=== PATIENT | male | born 1955 | race Caucasian/White ===

== ENCOUNTER 2017-03-20 15:41 | Inpatient (IN) | payer BC ==
[2017-03-20 16:42] LABS: Basophils % (A) 0 %; CH 31.3; CHCM 34.5; Eosinophils # (A) 0.1 k/uL (0-0.7); Eosinophils % (A) 1 %; HCT 45.3 % (39.0-53.0); HDW 2.31; HGB 15.5 gm/dL (13.0-17.5); Luc # (Auto) 0.17; Luc % (Auto) 2; Lymphocytes # (A) 2.1 k/uL (1.0-4.8); Lymphocytes % (A) 20 %; MCH 31.2 pg (25.0-35.0); MCHC 34.2 g/dL (31.0-37.0); MCV 91.3 fL (80.0-100.0); Mean Platelet Volume 6.3; Monocytes # (A) 0.6 k/uL (0-1.0); Monocytes % (A) 5 %; Neutrophils # (A) 7.7 k/uL (1.3-7.7); Neutrophils % (A) 72 %; RBC 4.97 m/uL (4.30-5.90); RDW 15.3 % (11.5-15.5); WBC 10.8 k/uL (3.8-10.6); WBC (Perox) 10.59
--- NOTE | 2017-03-20 16:45 | CT ---
EXAMINATION TYPE: CT brain wo con DATE OF EXAM: 03/20/2017 COMPARISON: NONE HISTORY: 61-year-old male Left sided weakness. TECHNIQUE: Examination was done in axial plane without intravenous contrast. Coronal and sagittal r econstructions performed. CT DLP: 1219.00 mGycm Automated exposure control for dose reduction was used. FINDINGS: There is no evidence of acute intracranial hemorrhage, acute ischemic changes, mass, mass-effect, or extra-axial fluid collection. There is no effacement of cerebral sulci or basal subarachnoid cister ns. There is no midline shift. Barrera-white matter distinction is preserved. Mild to moderate generalized supratentorial volume loss with secondary mild prominence to the ventric ular system. Moderate patchy and confluent white matter hypodensities in both cerebral hemispheres. Orbits and globes are intact. Rightward nasal septal deviation. Paranasal sinuses and mastoid air eliza ls well pneumatized. IMPRESSION: No acute intracranial abnormality seen. [id number] atrophy and changes of chronic small vessel ischemic disease.
--- NOTE | 2017-03-20 16:46 | XR ---
EXAMINATION TYPE: XR chest 2V DATE OF EXAM: 03/20/2017 COMPARISON: None HISTORY: 61-year-old male with weakness TECHNIQUE: Frontal and lateral views FINDINGS: Heart is normal size. Mild elongation/ectasia of the thoracic aorta. Mild interstitial prominence as a chronic appearance. No consolidation or pleural effusion. Minimal anterior wedging of a midthoracic vertebral body suggestive of an age indeterminate compression injury. IMPRESSION: Chronic-appearing changes. No acute process seen. Mild elongation/ectasia of the thoracic aorta. Mini mal anterior wedging of a mid thoracic vertebral bodies suggests an age indeterminate compression inj ury.
[2017-03-20 16:50] LABS: Partial Thromboplastin Time 25.4 sec (22.0-30.0); Prothrombin Time 10.3 sec (9.0-12.0)
[2017-03-20 16:59] LABS: ALT 54 U/L (21-72); AST 64 U/L (17-59); Alkaline Phosphatase 100 U/L (38-126); Anion Gap 14 mmol/L; Blood Urea Nitrogen 26 mg/dL (9-20); Calcium 10.3 mg/dL (8.4-10.2); Carbon Dioxide 22 mmol/L (22-30); Chloride 99 mmol/L (98-107); Glucose 116 mg/dL (74-99); Non-African American GFR(MDRD) >60 (>60 ml/min/1.73 sqM); Potassium 3.8 mmol/L (3.5-5.1); Sodium 135 mmol/L (137-145); Total Bilirubin 0.8 mg/dL (0.2-1.3); Total Protein 8.1 g/dL (6.3-8.2)
--- NOTE | 2017-03-20 17:05 | ED ---
General Adult HPI - General Chief complaint: Weakness Stated complaint: Weakness Time Seen by Provider: 03/20/17 16:29 Source: patient, EMS, RN notes reviewed Mode of arrival: EMS Limitations: physical limitation - History of Present Illness Initial comments: Patient is a pleasant 61-year-old male presenting to the emergency department complaining of left-sided weakness. Patient woke up Saturday morning with some problems. Patient fell down secondary to left-sided weakness and has been unable to walk since that time. Patient was able to scoot himself around a little bit with difficulty. Patient states his left arm weakness and left leg weakness has slightly improved. No right-sided weakness. No speech problems. No confusion. No injury. Patient has mostly been lying on the ground for the last 2 days. - Related Data Home Medications Medication Instructions Recorded Confirmed Acetaminophen [Tylenol Extra 500 mg PO DAILY PRN 03/20/17 03/20/17 Strength] Fluticasone Nasal [place] [Flonase 1 spray EA NOSTRIL DAILY 03/20/17 03/20/17 Nasal [place]] Loratadine [Claritin] 10 mg PO DAILY 03/20/17 03/20/17 Multivitamins, Thera [Multivitamin 1 tab PO DAILY 03/20/17 03/20/17 (formulary)] Allergies Allergy/AdvReac Type Severity Reaction Status Date / Time No Known Allergies Allergy Verified 03/20/17 16:17 Review of Systems ROS Statement: Those systems with pertinent positive or pertinent negative responses have been documented in the HPI. ROS Other: All systems not noted in ROS Statement are negative. Constitutional: Denies: fever Eyes: Denies: eye pain ENT: Denies: ear pain Respiratory: Denies: cough Cardiovascular: Denies: chest pain Endocrine: Denies: fatigue Gastrointestinal: Denies: abdominal pain Genitourinary: Denies: dysuria Musculoskeletal: Denies: back pain Skin: Denies: rash Neurological: Reports: weakness. Denies: headache, paresthesias, confusion Past Medical History Past Medical History: Hypertension, Seizure Disorder History of Any Multi-Drug Resistant Organisms: None Reported Past Surgical History: Hernia Repair, Tonsillectomy Past Psychological History: Anxiety Smoking Status: Current every day smoker Past Alcohol Use History: None Reported Past Drug Use History: Marijuana General Exam Limitations: physical limitation General appearance: alert, in no apparent distress Head exam: Present: atraumatic Eye exam: Present: normal appearance, PERRL, EOMI ENT exam: Present: normal oropharynx Neck exam: Present: normal inspection Respiratory exam: Present: normal lung sounds bilaterally Cardiovascular Exam: Present: regular rate, normal rhythm GI/Abdominal exam: Present: soft. Absent: tenderness Extremities exam: Present: normal inspection Neurological exam: Present: alert, oriented X3, CN II-XII intact (Except left facial droop and left shoulder weakness), motor sensory deficit Expanded Neurological exam: Present: other (Left Facial droop, not involving the forehead.) Patient oriented to: Present: person, place, time Speech: Present: fluid speech Cranial nerves: EOM's Intact: Normal, Facial Sensation: Normal Sensory exam: Upper Extremity Light Touch: Normal, Lower Extremity Light Touch: Normal Motor strength exam: RUE: 5, LUE: 2/1, RLE: 5, LLE: 2/ Psychiatric exam: Present: normal affect, normal mood Skin exam: Present: normal color Course Vital Signs 03/20/17 15:46 Temperature 99.8 F H Pulse Rate 104 H Respiratory 17 Rate Blood Pressure 221/135 - Reevaluation(s) Reevaluation #1: 03/20/17 17:01 Patient is not a TPA candidate secondary to onset of symptoms 2 days ago. EKG Findings - EKG Comments: EKG Findings:: Sinus tachycardia 102. VT 136. QRS 88. QT 364. QTC 474. Normal axis. Normal QRS. No acute ST change. Medical Decision Making - Medical Decision Making Patient was updated on results and plan. Case was discussed in detail with Dr. Bennett, who will admit for Dr. Lund. Neurology will be consulted. - Lab Data Result diagrams: 03/20/17 16:01 03/20/17 16:01 Lab Results 03/20/17 03/20/17 03/20/17 Range/Units 16:01 16:01 16:01 WBC 10.8 H (3.8-10.6) k/uL RBC 4.97 (4.30-5.90) m/uL Hgb 15.5 (13.0-17.5) gm/dL Hct 45.3 (39.0-53.0) % MCV 91.3 (80.0-100.0) fL MCH 31.2 (25.0-35.0) pg MCHC 34.2 (31.0-37.0) g/dL RDW 15.3 (11.5-15.5) % Plt Count 377 (150-450) k/uL Neutrophils % 72 % Lymphocytes % 20 % Monocytes % 5 % Eosinophils % 1 % Basophils % 0 % Neutrophils # 7.7 (1.3-7.7) k/uL Lymphocytes # 2.1 (1.0-4.8) k/uL Monocytes # 0.6 (0-1.0) k/uL Eosinophils # 0.1 (0-0.7) k/uL Basophils # 0.0 (0-0.2) k/uL PT 10.3 (9.0-12.0) sec INR 1.0 (<1.2) APTT 25.4 (22.0-30.0) sec Sodium 135 L (137-145) mmol/L Potassium 3.8 (3.5-5.1) mmol/L Chloride 99 (98-107) mmol/L Carbon Dioxide 22 (22-30) mmol/L Anion Gap 14 mmol/L BUN 26 H (9-20) mg/dL Creatinine 1.21 (0.66-1.25) mg/dL Est GFR (MDRD) Af Amer >60 (>60 ml/min/1.73 sqM) Est GFR (MDRD) Non-Af >60 (>60 ml/min/1.73 sqM) Glucose 116 H (74-99) mg/dL Calcium 10.3 H (8.4-10.2) mg/dL Total Bilirubin 0.8 (0.2-1.3) mg/dL AST 64 H (17-59) U/L ALT 54 (21-72) U/L Alkaline Phosphatase 100 (38-126) U/L Total Protein 8.1 (6.3-8.2) g/dL Albumin 4.9 (3.5-5.0) g/dL - Radiology Data Radiology results: image reviewed (Computed tomography scan of the brain shows no acute intracranial abnormality. Two-view chest x-ray shows chronic changes. No acute process. Ectasia of the thoracic aorta.) Disposition Clinical Impression: CVA (cerebral vascular accident) Disposition: ADMITTED IP TO THIS [facility] Condition: Serious Referrals: None,Stated [Primary Care Provider] - 1-2 days Decision Time: 17:20
[2017-03-20 17:20] LABS: Creatine Kinase MB 4.2 ng/mL (0.0-2.4); Troponin I 0.043 ng/mL (0.000-0.034)
[2017-03-20] MEDS ORDERED: ASPIRIN 325 MG TAB PO STA (17:20)
[2017-03-20] MEDS ORDERED: LABETALOL 5 MG/ML VIAL MDV IVP STA (17:27)
[2017-03-20] MEDS: SODIUM CHLORIDE 0.9% 1,000 ML IV SCH (17:37)
[2017-03-20 18:36] LABS: Glucose,Whole Blood 124 mg/dL (75-99)
[2017-03-20] MEDS ORDERED: VALPROATE SODIUM 1,000 MG in SODIUM CHLORIDE 0.9% 50 ML IVPB STA (18:48)
[2017-03-20 19:07] VITALS: BMI 20.1
[2017-03-20] MEDS: DIVALPROEX 500 MG TABLET.DR PO SCH (20:01)
[2017-03-20] MEDS: LABETALOL 5 MG/ML VIAL MDV IVP PRN ×2 (20:01→20:20)
[2017-03-20 20:22] LABS: Appearance,Urine Clear (Clear); Bacteria,Urine Rare /hpf; Bilirubin,Urine Negative (Negative); Glucose,Urine (UA) Negative (Negative); Ketones,Urine 1+ (Negative); Leukocyte Esterase,Urine Negative (Negative); Mucus,Urine Few /hpf; Nitrite,Urine Negative (Negative); Particle Count 5642; Protein,Urine 3+ (Negative); RBC,Urine 14 /hpf (0-5); Specific Gravity,Urine 1.019 (1.001-1.035); Squamous Epithelial Cell,Urine <1 /hpf (0-4); UA Billing (MACRO vs. MICRO) MICRO; WBC,Urine 3 /hpf (0-5)
--- NOTE | 2017-03-20 21:49 | CONS ---
CONSULTATION DATE OF CONSULTATION: 03/20/2017. CHIEF COMPLAINT: Stroke. HISTORY OF PRESENT ILLNESS: Mr. Merino is a pleasant 61-year-old, male, who is being evaluated by the Neurology Service per the request of Dr. Bennett for a stroke. The patient was brought into [facility] Emergency Room after his neighbor found him down on the ground with noticeable left-sided weakness including a left facial droop. The patient states that he woke up Saturday morning with this weakness but he did not seek any medical attention. On arrival to the emergency room, his blood pressure was found to be 221/135. He was given IV labetalol. A stat CT scan of the brain was done, which showed no acute intracranial abnormalities. There was generalized atrophy and small- vessel ischemic changes seen. His CBC showed minimal leukocytosis at 10.8 and was otherwise normal. His INR was normal. His comprehensive metabolic profile showed minimal hyponatremia at 135, and slightly elevated BUN at 26. His AST was slightly elevated at 64. His cardiac enzymes showed elevated CPK at 980, CK-MB at 4.2, and troponin I at 0.0436. At the time of my evaluation, the patient is lying in his bed and appears to be in no acute distress. He continues to have left hemiparesis but he states that the intensity is slightly improved. The patient also reports a history of seizure disorder for several years. He was on Depakote 500 mg b.i.d. but he informs me that he discontinued this medication a while ago. PAST MEDICAL HISTORY: Hypertension, seizure disorder, anxiety disorder, history of tonsillectomy and hernia repair. SOCIAL HISTORY: The patient is a current every day smoker. He occasionally smokes marijuana as well. He denies any current alcohol use but does report a previous history of alcohol abuse. FAMILY HISTORY: Positive for strokes. HOME MEDICATIONS: Reviewed in the chart. ALLERGIES: No known drug allergies. REVIEW OF SYSTEMS: CONSTITUTIONAL: Negative. EYES: Negative. ENT: Negative. CARDIOVASCULAR: Negative. RESPIRATORY: Negative. NEUROLOGICAL: As mentioned above. He denies any headache or dizziness. GASTROINTESTINAL: Negative. GENITOURINARY: Negative. PSYCHIATRIC: Positive for history of anxiety disorder. ENDOCRINE: Negative. MUSCULOSKELETAL: Negative. DERMATOLOGICAL: Negative. PHYSICAL EXAM: Vital signs show a temperature of 98.8, pulse 100, respiration 18, blood pressure 236/139. GENERAL APPEARANCE: The patient is a well-developed male, who appears to be in no acute distress. HEENT: Normocephalic, atraumatic, left facial droop is seen, extraocular muscles are intact. NECK: Supple with no masses felt. CARDIOVASCULAR: Regular rate and rhythm. ABDOMEN: Nontender, nondistended. Extremities showed no edema or clubbing. Neurological exam the patient is alert aware and oriented x3. Speech and language are normal. Strength is 3- out of 5 on the left and 5/5 on the right. Sensory exam was normal to light touch in all 4 extremities. Dysdiadochokinesia is noticed on the left side. Cranial nerve testing showed left facial weakness and left-sided sensory deficit on the face. No tremors or seizure-like activity is seen. IMPRESSION: 1. Acute ischemic stroke, right middle cerebral artery distribution. 2. Left hemiparesis. 3. Uncontrolled hypertension. 4. Seizure disorder. 5. Medication noncompliance. RECOMMENDATION: The patient does appear to have suffered an acute ischemic stroke involving the right middle cerebral artery distribution. He still has significant weakness on the left side although the intensity has improved according to the patient. He has been started on aspirin 325 mg daily. I will order an MRI of the brain, carotid Doppler, fasting lipid panel, EEG, and serum homocystine level. I will consult Physical Therapy to evaluate and treat. The patient's blood pressure continues to be significantly elevated. I will treat this with IV labetalol for systolic blood pressure greater that 200 and diastolic blood pressure greater than 100. I do recommend starting oral anti hypertension medication and a Cardiology consultation, especially with his elevated cardiac enzymes. The patient was counseled on tobacco cessation. I do recommend heparin for DVT prophylaxis and Protonix for GI prophylaxis. The patient denies any dysphagia. I will consult Physical therapy and Occupational therapy. As for his history of seizures, I will restart him on Depakote. I will order Depakote 15 mg/kg IV piggyback for a loading dose and will restart him on Depakote 500 mg b.i.d. for maintenance. Continue neuro checks. Continue IV hydration as tolerated. I will Continue to follow with you. Further recommendations to follow. Thank you Dr. Bennett for allowing me to participate in the care of your patient. If you have any questions, please feel free to contact me. MMODL / IJN: [id number] /
[2017-03-21] MEDS: SODIUM CHLORIDE 0.9% 1,000 ML IV SCH ×3 (03:38→20:04)
[2017-03-21] MEDS: LABETALOL 5 MG/ML VIAL MDV IVP PRN (03:38)
[2017-03-21 06:39] LABS: Cholesterol 230 mg/dL (<200); HDL Cholesterol 57 mg/dL (40-60)
[2017-03-21] MEDS: DIVALPROEX 500 MG TABLET.DR PO SCH ×2 (08:04→20:04)
--- NOTE | 2017-03-21 08:43 | US ---
EXAMINATION TYPE: US carotid duplex BILAT DATE OF EXAM: 03/20/2017 COMPARISON: NONE CLINICAL HISTORY: Stenosis. Possible CVA, weakness left side EXAM MEASUREMENTS: RIGHT: Peak Systolic Velocity (PSV) cm/sec ----- Right CCA: 32.2 ----- Right ICA: 209.8 ----- Right ECA: 108.1 ICA/CCA ratio: 6.5 RIGHT: End Diastole cm/sec ----- Right CCA: 9.5 ----- Right ICA: 61.1 ----- Right ECA: 17.6 LEFT: Peak Systolic Velocity (PSV) cm/sec ----- Left CCA: 60.3 ----- Left ICA: 206.5 ----- Left ECA: 78.8 ICA/CCA ratio: 3.4 LEFT: End Diastole cm/sec ----- Left CCA: 23.0 ----- Left ICA: 71.8 ----- Left ECA: 12.8 VERTEBRALS (direction of flow): Right Vertebral: Antegrade Left Vertebral: Antegrade Rhythm: Normal Moderate to severe plaque noted bilateral bifurcations. Increased velocities right ICA and left ICA. Tortuous distal bilateral ICA's Grayscale, color Doppler, spectral Doppler imaging performed of the carotid arteries. IMPRESSION: Hemodynamic significant stenosis of the proximal internal carotid arteries bilaterally c orresponding to approximately 50-69% diameter stenosis, consider carotid CTA or MRA, an indirect adolph urement of carotid stenosis Criteria for Assigning % of Stenosis / Diameter reduction (Estimation based on the indirect measurements of the internal carotid artery velocities (ICA PSV). 1. Normal (no stenosis)=ICA PSV < 125 cm/s: ratio < 2.0: ICA EDV<40 cm/s. 2. Less than 50% stenosis=ICA PSV < 125 cm/s: ratio < 2.0: ICA EDV<40 cm/s. 3. 50 to 69% stenosis=ICA PSV of 125 to 230 cm/s: ration 2.0 ? 4.0: ICA EDV 40-100 cm/s. 4. Greater than 70% stenosis to near occlusion= ICA PSV > 230 cm/s: ratio > 4.0: ICA EDV > 100 cm/s. 5. Near occlusion= ICA PSV velocities may be low or undetectable: variable ratio and ICA EDV. 6. Total occlusion=unable to detect flow.
[2017-03-21] MEDS ORDERED: ASPIRIN 325 MG TAB PO SCH (09:00)
[2017-03-21] MEDS ORDERED: NALTREXONE HCL 50 MG TAB PO SCH (09:00)
[2017-03-21 09:19] LABS: Basophils % (A) 0 %; CH 31.1; CHCM 33.4; Eosinophils # (A) 0.2 k/uL (0-0.7); Eosinophils % (A) 4 %; HDW 2.21; HGB 12.6 gm/dL (13.0-17.5); Luc # (Auto) 0.12; Luc % (Auto) 2; Lymphocytes # (A) 2.2 k/uL (1.0-4.8); Lymphocytes % (A) 32 %; MCH 31.1 pg (25.0-35.0); MCHC 33.2 g/dL (31.0-37.0); MCV 93.7 fL (80.0-100.0); Monocytes # (A) 0.5 k/uL (0-1.0); Monocytes % (A) 8 %; Neutrophils # (A) 3.8 k/uL (1.3-7.7); Neutrophils % (A) 55 %; RBC 4.06 m/uL (4.30-5.90); RDW 15.3 % (11.5-15.5); WBC (Perox) 7.37
[2017-03-21 09:43] LABS: ALT 36 U/L (21-72); AST 44 U/L (17-59); Alkaline Phosphatase 66 U/L (38-126); Anion Gap 10 mmol/L; Blood Urea Nitrogen 33 mg/dL (9-20); Carbon Dioxide 24 mmol/L (22-30); Chloride 98 mmol/L (98-107); Creatine Kinase 639 U/L (55-170); Glucose 113 mg/dL (74-99); Non-African American GFR(MDRD) >60 (>60 ml/min/1.73 sqM); Potassium 3.7 mmol/L (3.5-5.1); Sodium 132 mmol/L (137-145); Total Bilirubin 0.4 mg/dL (0.2-1.3)
[2017-03-21] MEDS: LORATADINE 10 MG TAB PO SCH (10:04)
[2017-03-21] MEDS: DULoxetine HCL 60 MG CAPSULE.DR PO SCH (10:04)
[2017-03-21] MEDS: FAMOTIDINE 20 MG TAB PO SCH (10:04)
[2017-03-21] MEDS: MULTIVITAMINS, THERA 1 EACH TAB PO SCH (10:05)
[2017-03-21] MEDS: HEPARIN SODIUM,PORCINE 5,000 UNIT/ML 1 ML VIAL SQ SCH ×2 (10:05→20:04)
[2017-03-21] MEDS: FLUTICASONE 50MCG/SPRAY NASAL 16GM EA NOSTRIL SCH (10:08)
[2017-03-21] MEDS ORDERED: RX INFO: IV CONTRAST WAS GIVEN 1 EACH MISC MISCELLANE PRN (10:35)
--- NOTE | 2017-03-21 10:35 | MR ---
EXAMINATION TYPE: MR brain wo con DATE OF EXAM: 03/21/2017 COMPARISON: CT scan 03/20/2017 HISTORY: CVA T1-weighted sagittal, T2, FLAIR, and diffusion axial, and T2 coronal coronal views of the brain are s ubmitted. There is 1.4 cm area of abnormal signal in diffusion within the right thalamus compatible with acute ischemia. No significant mass effect. [id number] generalized degenerative change seen. Diffuse and focal areas of abnormal signal inv olving the white matter compatible with remote microvascular ischemia. There is reduced visualization of the normal signal void within the right internal carotid artery. Re commend stat MRA or CTA. Report called to patient's nurse. Additionally there is marked prominence of the MCA bifurcation on the right. Aneurysm not excluded. Craniocervical junction maintained. Sella turcica has a normal appearance. Abnormal signal the jono s uggestive of remote ischemia. No cerebellopontine angle mass. Areas of abnormal signal the basal ganglia and additional areas withi n the right thalamus is likely the basis of remote lacunar infarction. IMPRESSION: 1. Acute ischemia right thalamus measuring 1.4 cm. 2. Abnormal appearance of the right internal carotid artery which may represent thrombus or possibly dissection. Stat MRA or CTA suggested. Report called the patient's nurse. 3. Extensive white matter disease likely the basis of remote ischemia. A Red message has been communicated to Lakshmi Hernandez MD~[id number] via the [employer] Re sult system on 03/21/2017 10:30 AM, Message ID [id number].
--- NOTE | 2017-03-21 10:39 | ECHOF ---
Referral Reason:Thrombus MEASUREMENTS -------- HEIGHT: 180.3 cm WEIGHT: 82.1 kg BP: 180/97 RVIDd: 3.1 cm (< 3.3) IVSd: 1.3 cm (0.6 - 1.1) LVIDd: 4.3 cm (3.9 - 5.3) LVPWd: 1.3 cm (0.6 - 1.1) IVSs: 2.0 cm LVIDs: 3.2 cm LVPWs: 1.6 cm LAESV Index (A-L): 29.07 ml/m Ao Diam: 3.3 cm (2.0 - 3.7) AV Cusp: 2.1 cm (1.5 - 2.6) LA Diam: 3.4 cm (2.7 - 3.8) MV EXCURSION: 12.842 mm (> 18.000) MV EF SLOPE: 40 mm/s (70 - 150) EPSS: 1.6 cm MV E Mac: 0.47 m/s MV DecT: 356 ms MV A Mac: 0.85 m/s MV E/A Ratio: 0.55 FINDINGS -------- Sinus rhythm. This was a technically adequate study. Patient unable to turn due to left sided wekness seconary to CVA. Test performed in supine position. The left ventricular size is normal. There is mild concentric left ventricular hypertrophy. Overall left ventricular systolic function is normal with, an EF between 60 - 65 %. The right ventricle is normal in size and function. LA is midly dilated 29-33ml/m2. The right atrium is normal in size. Aortic valve is trileaflet and is mildly thickened. Trace amount of aortic regurgitation. There is no evidence of aortic stenosis. The mitral valve leaflets are mildly thickened. There is trace mitral regurgitation. Trace tricuspid regurgitation present. Right ventricular systolic pressure is normal at < 35 mmHg. There is no evidence of pulmonary hypertension. The pulmonic valve was not well visualized. The aortic root size is normal. Normal inferior vena cava with normal inspiratory collapse consistent with estimated right atrial pressure of 5 mmHg. The pericardium is normal. There is no pericardial effusion. CONCLUSIONS -------- 1. Sinus rhythm. 2. The mitral valve leaflets are mildly thickened. 3. There is trace mitral regurgitation. 4. Trace tricuspid regurgitation present. 5. Right ventricular systolic pressure is normal at < 35 mmHg. 6. There is no evidence of pulmonary hypertension. 7. The pulmonic valve was not well visualized. 8. The aortic root size is normal. 9. Consider AMARJIT to definitively r/o thrombus. 10. This was a technically adequate study. 11. Patient unable to turn due to left sided wekness seconary to CVA. Test performed in supine position. 12. The left ventricular size is normal. 13. There is mild concentric left ventricular hypertrophy. 14. Overall left ventricular systolic function is normal with, an EF between 60 - 65 %. 15. LA is midly dilated 29-33ml/m2. 16. Aortic valve is trileaflet and is mildly thickened. 17. Trace amount of aortic regurgitation. SUCTION DRUM DRIER OPERATOR: Mayank Chew RDCS
[2017-03-21] MEDS ORDERED: HYDROCHLOROTHIAZIDE 25 MG TAB PO SCH ×2 (11:00→22:30)
--- NOTE | 2017-03-21 11:05 | P.CRDCN ---
History of Present Illness Consult date: 03/21/17 Requesting physician: Pushpa Bennett Reason for Consult (text): elevated cardiac enzymes, HTN Chief complaint: left-sided weakness History of present illness: This is a 61-year-old gentleman with a history of seizure disorder and hypertension, noncompliant, quit taking Depakote and antihypertensives approximately 2 years ago. He began to notice left-sided weakness on Saturday, March 18 upon waking that progressively got worse throughout the day. By that evening he was crawling from his couch to his kitchen as he couldn't walk. He was eventually found on his kitchen floor by his neighbor yesterday March 20. And was brought to the emergency department. Computed tomography scan showed no acute intracranial process. Blood pressure was quite elevated to 20/135. He was found have a thickened left-sided weakness and a left facial droop. We were asked to see the patient in consultation as his troponins came back to be minimally elevated at 0.0432 with a CK of 980 and a CK-MB of 4.2. Patient has had a carotid duplex that showed hemodynamic significant stenosis to the proximal ICAs bilaterally corresponding to approximately 50-69% diameter stenosis and recommended carotid CTA or MRA. He is undergone MRI, results are pending. Patient remains quite hypertensive with a blood pressure this morning of 190s over 90s he is currently only receiving labetalol when necessary. Continues to have significant left-sided weakness with minimal movement to of his left arm and leg. Noticeable facial droop. Lab values were reviewed and showed a BUN of 33 and creatinine 1.2. Upon examination, patient is sitting up in bed talking on the phone and eating a sandwich. He does not have appear to have any difficulty swallowing. He denies any complaints of shortness of breath , chest discomfort, dizziness or lightheadedness. He has had no complaints of edema. Past Medical History Past Medical History: Hypertension, Seizure Disorder Additional Past Medical History / Comment(s): ETOH - on and off for years. stopped drinking a week ago, was drinking 3 16 oz beers per day History of Any Multi-Drug Resistant Organisms: None Reported Past Surgical History: Hernia Repair, Tonsillectomy Past Anesthesia/Blood Transfusion Reactions: No Reported Reaction Past Psychological History: Anxiety Smoking Status: Current every day smoker Past Alcohol Use History: None Reported Past Drug Use History: Marijuana - Past Family History Father Additional Family Medical History / Comment(s): heart disease Mother History Unknown: Yes Medications and Allergies Home Medications Medication Instructions Recorded Confirmed Type Acetaminophen [Tylenol Extra 500 mg PO DAILY PRN 03/20/17 03/20/17 History Strength] DULoxetine HCL [Cymbalta] 60 mg PO DAILY 03/20/17 03/20/17 History Divalproex [Depakote] 500 mg PO DAILY 03/20/17 03/20/17 History Fluticasone Nasal Plummer [Flonase 1 spray EA NOSTRIL DAILY 03/20/17 03/20/17 History Nasal Plummer] Loratadine [Claritin] 10 mg PO DAILY 03/20/17 03/20/17 History Multivitamins, Thera [Multivitamin 1 tab PO DAILY 03/20/17 03/20/17 History (formulary)] Naltrexone HCl [Revia] 50 mg PO DAILY 03/20/17 03/20/17 History Allergies Allergy/AdvReac Type Severity Reaction Status Date / Time No Known Allergies Allergy Verified 03/20/17 16:17 Physical Exam Vitals: Vital Signs Temp Pulse Pulse Pulse Resp BP BP 03/21/17 08:00 97.1 F L 78 18 03/21/17 04:20 03/21/17 04:00 97.2 F L 71 16 03/21/17 00:00 97.2 F L 71 16 03/20/17 20:40 03/20/17 20:20 03/20/17 20:00 97.2 F L 84 16 03/20/17 19:25 84 03/20/17 18:25 99.7 F H 80 16 215/129 03/20/17 17:49 75 18 185/105 03/20/17 17:15 100 18 03/20/17 17:00 100 18 03/20/17 16:30 98 18 03/20/17 16:15 100 18 03/20/17 15:46 99.8 F H 104 H 17 221/135 BP Pulse Ox 03/21/17 08:00 192/96 95 03/21/17 04:20 180/97 03/21/17 04:00 177/106 95 03/21/17 00:00 147/89 99 03/20/17 20:40 153/99 03/20/17 20:20 183/118 03/20/17 20:00 201/121 95 03/20/17 19:25 201/121 03/20/17 18:25 194/136 94 L 03/20/17 17:49 98 03/20/17 17:15 222/132 03/20/17 17:00 236/139 03/20/17 16:30 225/138 03/20/17 16:15 237/139 03/20/17 15:46 Intake and Output 03/20/17 03/21/17 03/21/17 22:59 06:59 14:59 Intake Total 200 800 Output Total 200 300 Balance 0 500 Intake: IV 200 800 Sodium Chloride 0.9% 1, 200 800 000 ml @ 100 mls/hr IV . Q10H [facility] Rx#:[id number] Output: Urine 200 300 Other: Voiding Method Urinal Urinal Weight 65.5 kg 82.5 kg PHYSICAL EXAMINATION: HEENT: Head is atraumatic, normocephalic. Pupils equal, round. Neck is supple. There is no elevated jugular venous pressure. HEART EXAMINATION: Heart sounds regular, S1 and S2 normal. No murmur or gallop heard. CHEST EXAMINATION: Lungs are clear to auscultation and precussion. No chest wall tenderness is noted on palpation or with deep breathing. ABDOMEN: Soft, nontender. Bowel sounds are heard. No organomegaly noted. EXTREMITIES: 2+ peripheral pulses with no evidence of peripheral edema and no calf tenderness noted. NEUROLOGIC patient is awake, alert and oriented x3. Left-sided facial droop and significant left-sided weakness noted. . Results 03/21/17 05:34 03/21/17 05:34 Cardiac Enzymes 03/20/17 03/20/17 03/21/17 Range/Units 16:01 16:01 05:34 AST 64 H 44 (17-59) U/L CK-MB (CK-2) 4.2 H* (0.0-2.4) ng/mL Troponin I 0.043 H* (0.000-0.034) ng/mL 03/21/17 Range/Units 05:34 AST (17-59) U/L CK-MB (CK-2) (0.0-2.4) ng/mL Troponin I 0.043 H* (0.000-0.034) ng/mL Coagulation 03/20/17 Range/Units 16:01 PT 10.3 (9.0-12.0) sec APTT 25.4 (22.0-30.0) sec Lipids 03/21/17 Range/Units 05:34 Triglycerides 101 (<150) mg/dL Cholesterol 230 H (<200) mg/dL HDL Cholesterol 57 (40-60) mg/dL CBC 03/20/17 03/21/17 Range/Units 16:01 05:34 WBC 10.8 H 7.0 (3.8-10.6) k/uL RBC 4.97 4.06 L (4.30-5.90) m/uL Hgb 15.5 12.6 L (13.0-17.5) gm/dL Hct 45.3 38.0 L (39.0-53.0) % Plt Count 377 326 (150-450) k/uL Comprehensive Metabolic Panel 03/20/17 03/21/17 Range/Units 16:01 05:34 Sodium 135 L 132 L (137-145) mmol/L Potassium 3.8 3.7 (3.5-5.1) mmol/L Chloride 99 98 (98-107) mmol/L Carbon Dioxide 22 24 (22-30) mmol/L BUN 26 H 33 H (9-20) mg/dL Creatinine 1.21 1.20 (0.66-1.25) mg/dL Glucose 116 H 113 H (74-99) mg/dL Calcium 10.3 H 9.0 (8.4-10.2) mg/dL AST 64 H 44 (17-59) U/L ALT 54 36 (21-72) U/L Alkaline Phosphatase 100 66 (38-126) U/L Total Protein 8.1 6.0 L (6.3-8.2) g/dL Albumin 4.9 3.4 L (3.5-5.0) g/dL Current Medications Generic Name Dose Route Start Last Admin Trade Name Freq PRN Reason Stop Dose Admin Amlodipine Besylate 5 mg 03/21/17 13:30 Norvasc PO BID [facility] Aspirin 325 mg 03/21/17 09:00 03/21/17 08:04 Aspirin PO 325 mg DAILY [facility] Administration Divalproex Sodium 500 mg 03/20/17 21:00 03/21/17 08:04 Depakote PO 500 mg BID [facility] Administration Duloxetine HCl 60 mg 03/21/17 09:00 03/21/17 10:04 Cymbalta PO 60 mg DAILY [facility] Administration Famotidine 20 mg 03/21/17 09:00 03/21/17 10:04 Pepcid PO 20 mg DAILY [facility] Administration Fluticasone Propionate 1 spray 03/21/17 09:00 03/21/17 10:08 Flonase Nasal Plummer EA NOSTRIL 1 spray DAILY [facility] Administration Heparin Sodium (Porcine) 5,000 unit 03/21/17 09:00 03/21/17 10:05 Heparin SQ 5,000 unit Q12HR [facility] Administration Hydrochlorothiazide 25 mg 03/21/17 11:00 Hydrodiuril PO DAILY [facility] Sodium Chloride 1,000 mls @ 100 mls/hr 03/20/17 17:30 03/21/17 03:38 Saline 0.9% IV 100 mls/hr .Q10H [facility] Administration Lisinopril 5 mg 03/21/17 11:00 Zestril PO BID [facility] Loratadine 10 mg 03/21/17 09:00 03/21/17 10:04 Claritin PO 10 mg DAILY [facility] Administration Miscellaneous Information 1 each 03/21/17 10:35 Rx Info: Iv Contrast Was Given MISCELLANE 03/23/17 10:36 DAILY PRN Per Protocol Multivitamins 1 each 03/21/17 12:00 03/21/17 10:05 Theragran PO 1 each DAILY@1200 [facility] Administration Naltrexone HCl 50 mg 03/21/17 09:00 03/21/17 10:04 Revia PO 50 mg DAILY [facility] Administration Intake and Output 03/20/17 03/21/17 03/21/17 22:59 06:59 14:59 Intake Total 200 800 Output Total 200 300 Balance 0 500 Intake: IV 200 800 Sodium Chloride 0.9% 1, 200 800 000 ml @ 100 mls/hr IV . Q10H [facility] Rx#:[id number] Output: Urine 200 300 Other: Voiding Method Urinal Urinal Weight 65.5 kg 82.5 kg 03/21/17 05:34 03/21/17 05:34 EKG Interpretations (text) Sinus tachycardia Assessment and Plan Plan: Assessment and plan #1 CVA #2 Uncontrolled hypertension #3 medication noncompliance #4 mild troponin leak not consistent with acute myocardial injury Cardiology's perspective, we will review 2-D echo with Doppler. We will stop when necessary labetalol and start the patient on hydrochlorothiazide 25 mg by mouth daily, lisinopril 5 mg by mouth twice a day and amlodipine 5 mg by mouth twice a day. We'll stagger these medications to prevent sudden drop in blood pressure. Continue follow the patient right further recommendations accordingly. LEARNING OPERATIONS SPECIALIST note has been reviewed, I agree with a documented findings and plan of care. Patient was seen and examined.
[2017-03-21] MEDS ORDERED: LORazepam 2 MG/ML INJ IV PRN ×3 (11:35)
[2017-03-21] MEDS ORDERED: THIAMINE 100 MG/ML 2 ML VIAL IM STA (11:39)
--- NOTE | 2017-03-21 11:55 | P.HPIM ---
History of Present Illness H&P Date: 03/21/17 Chief Complaint: Left-sided weakness This is a 61-year-old male with a known past medical history of hypertension, seizure disorder, nicotine dependence, alcohol abuse and possible bipolar. Patient was brought into the emergency room with complaints of left-sided weakness. It apparently his symptoms started Saturday morning he reports that he was outside and fell to the ground he had to drag himself into the house. He reports laying on the floor for almost 3 days he was able to get a few sips of water but otherwise had not eaten or drank very much. His neighbor stopped by and called EMS. Patient was found have evidence of a stroke. He has significant left-sided arm weakness he's starting to have some movement in his left arm. He has a left-sided facial droop and weakness noted in the left leg. Patient is also having some confusion. He reports that he has been off of all of his medications including his seizure medications and psych medications. At his been about 6 months to years since he's been seen by either his psychiatrist or PCP. Patient was admitted to the sixth floor. Cardiology and neurology has been consulted. EKG is showing sinus tachycardia heart rate of 102. Telemetry has been showing a sinus rhythm. Patient has been hypertensive with systolic blood pressure in the 200s. He was given labetalol in the emergency room. Computed tomography scan of the brain had shown no acute changes but did reveal mild to moderate atrophy and changes of chronic small vessel ischemic disease. Neurology ordered an MRI of the brain which did show an acute ischemia of the right thalamus measuring 1.4 cm. Abnormal appearance of the right internal carotid artery which may represent thrombus or possibly dissection a CTA has been ordered. There is extensive white matter disease likely on the basis of remote ischemia. Carotid ultrasound showing 50-69% stenosis bilaterally in the internal carotid artery. Echo showing a normal EF of 60-65%. No sniffing of valvular abnormality. However there is concern for a possible thrombus and may need to have a AMARJIT. Awaiting cardiology evaluation. Patient also has evidence of acute rhabdomyolysis. His CPK levels were elevated in the 900s. He is currently on IV fluids. This is likely related to him being on a full floor for a prolonged period of time. Patient denies any fever, chills, sweats. Denies any nausea or vomiting. Denies any bowel movement changes or urinary symptoms. He has been to sepsis abuse programs in the past for his alcohol dependency. He does have a family history of strokes which include his father and grandfather. Past Medical History Past Medical History: Hypertension, Seizure Disorder Additional Past Medical History / Comment(s): ETOH - on and off for years. stopped drinking a week ago, was drinking 3 16 oz beers per day History of Any Multi-Drug Resistant Organisms: None Reported Past Surgical History: Hernia Repair, Tonsillectomy Past Anesthesia/Blood Transfusion Reactions: No Reported Reaction Past Psychological History: Anxiety Smoking Status: Current every day smoker Past Alcohol Use History: None Reported, Heavy Past Drug Use History: Marijuana - Past Family History Father Additional Family Medical History / Comment(s): heart disease Mother History Unknown: Yes Medications and Allergies Home Medications Medication Instructions Recorded Confirmed Type Acetaminophen [Tylenol Extra 500 mg PO DAILY PRN 03/20/17 03/20/17 History Strength] DULoxetine HCL [Cymbalta] 60 mg PO DAILY 03/20/17 03/20/17 History Divalproex [Depakote] 500 mg PO DAILY 03/20/17 03/20/17 History Fluticasone Nasal Cutler [Flonase 1 spray EA NOSTRIL DAILY 03/20/17 03/20/17 History Nasal Cutler] Loratadine [Claritin] 10 mg PO DAILY 03/20/17 03/20/17 History Multivitamins, Thera [Multivitamin 1 tab PO DAILY 03/20/17 03/20/17 History (formulary)] Naltrexone HCl [Revia] 50 mg PO DAILY 03/20/17 03/20/17 History Allergies Allergy/AdvReac Type Severity Reaction Status Date / Time No Known Allergies Allergy Verified 03/20/17 16:17 Physical Exam Vitals: Vital Signs Temp Pulse Pulse Pulse Resp BP BP 03/21/17 08:00 97.1 F L 78 18 03/21/17 04:20 03/21/17 04:00 97.2 F L 71 16 03/21/17 00:00 97.2 F L 71 16 03/20/17 20:40 03/20/17 20:20 03/20/17 20:00 97.2 F L 84 16 03/20/17 19:25 84 03/20/17 18:25 99.7 F H 80 16 215/129 03/20/17 17:49 75 18 185/105 03/20/17 17:15 100 18 03/20/17 17:00 100 18 03/20/17 16:30 98 18 03/20/17 16:15 100 18 03/20/17 15:46 99.8 F H 104 H 17 221/135 BP Pulse Ox 03/21/17 08:00 192/96 95 03/21/17 04:20 180/97 03/21/17 04:00 177/106 95 03/21/17 00:00 147/89 99 03/20/17 20:40 153/99 03/20/17 20:20 183/118 03/20/17 20:00 201/121 95 03/20/17 19:25 201/121 03/20/17 18:25 194/136 94 L 03/20/17 17:49 98 03/20/17 17:15 222/132 03/20/17 17:00 236/139 03/20/17 16:30 225/138 03/20/17 16:15 237/139 03/20/17 15:46 Intake and Output 03/20/17 03/21/17 03/21/17 22:59 06:59 14:59 Intake Total 200 800 Output Total 200 300 Balance 0 500 Intake: IV 200 800 Sodium Chloride 0.9% 1, 200 800 000 ml @ 100 mls/hr IV . Q10H [facility] Rx#:[id number] Output: Urine 200 300 Other: Voiding Method Urinal Urinal Weight 65.5 kg 82.5 kg Head normocephalic Neck supple no carotid bruits Lungs clear to auscultation bilaterally no wheezing or crackles Heart regular rate and rhythm S1-S2, no rub or gallop Abdomen is soft nontender nondistended positive bowel sounds no hepatosplenomegaly Extremities no edema Neuro alert and orientated to 2. Did not know place. Evidence of a left-sided facial droop. Difficulty with moving the left arm. 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 Lower extremity strength decreased on the left side. No evidence of numbness or sensation loss. Results CBC & Chem 7: 03/21/17 05:34 03/21/17 05:34 Labs: Abnormal Lab Results - Last 24 Hours (Table) 03/20/17 03/20/17 03/20/17 Range/Units 16:01 16:01 16:01 WBC 10.8 H (3.8-10.6) k/uL RBC (4.30-5.90) m/uL Hgb (13.0-17.5) gm/dL Hct (39.0-53.0) % Sodium 135 L (137-145) mmol/L BUN 26 H (9-20) mg/dL Glucose 116 H (74-99) mg/dL POC Glucose (mg/dL) (75-99) mg/dL Calcium 10.3 H (8.4-10.2) mg/dL AST 64 H (17-59) U/L Creatine Kinase (55-170) U/L Total Creatine Kinase 980 H (55-170) U/L CK-MB (CK-2) 4.2 H* (0.0-2.4) ng/mL Troponin I 0.043 H* (0.000-0.034) ng/mL Total Protein (6.3-8.2) g/dL Albumin (3.5-5.0) g/dL Cholesterol (<200) mg/dL LDL Cholesterol, Calc (0-99) mg/dL Urine Protein (Negative) Urine Ketones (Negative) Urine Blood (Negative) Urine RBC (0-5) /hpf Urine Bacteria (None) /hpf Hyaline Casts (0-2) /lpf Urine Mucus (None) /hpf 03/20/17 03/20/17 03/21/17 Range/Units 18:34 20:12 05:34 WBC (3.8-10.6) k/uL RBC (4.30-5.90) m/uL Hgb (13.0-17.5) gm/dL Hct (39.0-53.0) % Sodium (137-145) mmol/L BUN (9-20) mg/dL Glucose (74-99) mg/dL POC Glucose (mg/dL) 124 H (75-99) mg/dL Calcium (8.4-10.2) mg/dL AST (17-59) U/L Creatine Kinase (55-170) U/L Total Creatine Kinase (55-170) U/L CK-MB (CK-2) (0.0-2.4) ng/mL Troponin I (0.000-0.034) ng/mL Total Protein (6.3-8.2) g/dL Albumin (3.5-5.0) g/dL Cholesterol 230 H (<200) mg/dL LDL Cholesterol, Calc 153 H (0-99) mg/dL Urine Protein 3+ H (Negative) Urine Ketones 1+ H (Negative) Urine Blood Moderate H (Negative) Urine RBC 14 H (0-5) /hpf Urine Bacteria Rare H (None) /hpf Hyaline Casts 6 H (0-2) /lpf Urine Mucus Few H (None) /hpf 03/21/17 03/21/17 03/21/17 Range/Units 05:34 05:34 05:34 WBC (3.8-10.6) k/uL RBC 4.06 L (4.30-5.90) m/uL Hgb 12.6 L (13.0-17.5) gm/dL Hct 38.0 L (39.0-53.0) % Sodium 132 L (137-145) mmol/L BUN 33 H (9-20) mg/dL Glucose 113 H (74-99) mg/dL POC Glucose (mg/dL) (75-99) mg/dL Calcium (8.4-10.2) mg/dL AST (17-59) U/L Creatine Kinase 639 H (55-170) U/L Total Creatine Kinase (55-170) U/L CK-MB (CK-2) (0.0-2.4) ng/mL Troponin I 0.043 H* (0.000-0.034) ng/mL Total Protein 6.0 L (6.3-8.2) g/dL Albumin 3.4 L (3.5-5.0) g/dL Cholesterol (<200) mg/dL LDL Cholesterol, Calc (0-99) mg/dL Urine Protein (Negative) Urine Ketones (Negative) Urine Blood (Negative) Urine RBC (0-5) /hpf Urine Bacteria (None) /hpf Hyaline Casts (0-2) /lpf Urine Mucus (None) /hpf Thrombosis Risk Factor Assmnt - Choose All That Apply Each Factor Represents 1 point: Age 41-60 years Other Risk Factors: No Other congenital or acquired thrombophilia - If yes, enter type in comment: No Thrombosis Risk Factor Assessment Total Risk Factor Score: 1 Thrombosis Risk Factor Assessment Level: Low Risk Assessment and Plan Plan: 1. Acute CVA: MRI showing evidence of acute ischemia in the right thalamus. Neurology consulted. Continue with a full aspirin. Continue telemetry monitoring. Rule out any cardiac arrhythmias. Neurology and cardiology have been consulted. Echo shows concerns of a possible thrombus. We'll await cardiology evaluation for possible AMARJIT. Echo showing an EF of 6065% with no significant valvular abnormality. Carotid ultrasound showing 50-69% bilateral internal carotid artery stenosis. Patient also having significant high blood pressures and history of smoking both protruding fractures to possible stroke. PT OT have been consulted. Social work has been consulted for possible ECF placement 2. MRI shows evidence of possible thrombus in the right internal carotid artery. CTA of the neck has been ordered by neurology. 3. Mildly elevated troponins: Likely due to a troponin leak. Evaluated by cardiology. Troponin leak not consistent with an acute myocardial infarction 4. Hypertensive emergency: Patient had sudden blood pressure in the 200s. Was initially given IV labetalol. Cardiology has adjusted blood pressure medications they've added hydrochlorothiazide 25 mg daily, lisinopril 5 twice a day and Norvasc 5 mg twice a day. Blood pressure medications have been staggered to prevent sudden drop in blood pressure 5. Nicotine dependence: Discussed smoking cessation for greater than 3 minutes. Start nicotine patch 6. Alcohol dependence: Patient reports last drink was about a week ago. Sister at bedside does report patient has a history of heavy drinking. Start the CIWA protocol with IV Ativan. Add thiamine and multivitamin 7. Possible history of bipolar: Patient had been following up with psychiatry outpatient. Reports he stopped taking his psych meds and seeing the psychiatrist about 6 months ago. 8. History of seizure disorder: Last seizure about a year ago. He reports that he has been off of his Depakote for a while now 9. Acute rhabdomyolysis: Secondary to being on the ground for extended period of time. Continue to monitor CPK levels. Continue with IV fluids. GI prophylaxis Pepcid and DVT prophylaxis subcu heparin Time with Patient: Greater than 30 (Greater than 50% of the total time spent in counseling and coordination of care.I performed an examination of the patient and discussed their management with the physician Drapery And Upholstery Measurer. I have reviewed the Physician Drapery [employer] Uphol[employer] Measurer's notes and agree with the documented findings and plan of care)
[2017-03-21] MEDS: LISINOPRIL 5 MG TAB PO SCH ×2 (12:40→20:04)
[2017-03-21] MEDS: NICOTINE 21MG/24HR PATCH TRANSDERM SCH (12:42)
--- NOTE | 2017-03-21 12:43 | P.PN ---
Progress Note - Text This is an addendum to the dictated cardiology consultation. The patient presents with evidence of CVA and was noted to be significantly hypertensive on presentation. He has a history of hypertension but has not taking any medication for at least a year. He has a history of chronic tobacco use and history of chronic alcohol intake, he drinks at least 4 beers a day. He denies any chest pain, dyspnea, dizziness or palpitations. Since admission he is in sinus mechanism with no evidence of tachy or julisa arrhythmia. He has no history of CHF or CAD although he has not been seen by a physician for a few years. According to him he used to be active physically but not recently. His echocardiogram revealed a preserved ventricle size and systolic function with no significant valvular disease and there is no evidence of thrombus. I would add an KATE inhibitor, amlodipine and HCTZ to his regimen, he'll be started on statin. We will await further neurological workup. From the cardiac standpoint there is no clear evidence to suggest the need for a AMARJIT at this time unless it is felt to be needed from neurology. Depending on the trend of his blood pressure further adjustment of his medical regimen will be made, we will avoid an abrupt drop in his blood pressure in view of his recent neurological event. Thank you for this consult we will follow with you.
--- NOTE | 2017-03-21 13:15 | CT ---
EXAMINATION TYPE: CT angio neck DATE OF EXAM: 03/21/2017 HISTORY: cva symptoms, stenosis COMPARISON: MR brain 03/21/2017 CT DLP: 314.4 mGycm. Automated Exposure Control for Dose Reduction was Utilized. TECHNIQUE: CTA scan of the neck is performed with IV Contrast, patient injected with 65 mL of Omnipa que 350, axial images are obtained, coronal and sagittal reformatted images are reviewed. Three-D rec onstructed images are created on an independent workstation and reviewed. FINDINGS: Carotid/Vascular Structures: The innominate artery, common carotid arteries, vertebral arteries, left and right subclavian arteries are patent. Atheromatous changes are present at the carotid bulbs bila terally. Hemodynamic significant stenoses are present bilaterally. Proximal internal carotid artery o n the right shows a string sign compatible with near occlusion. Hemodynamic significant stenosis of t he proximal internal carotid artery on the left corresponds to approximately 50% diameter reduction. External carotid arteries are patent. There is a mild reduction in caliber within the internal carotid artery at the level just prior to en try within the skull, some mild loss of caliber also present within the petrous portion of the collector of internal revenue al carotid artery on the right is likely due to atheromatous change. No evident filling defect to sug gest dissection. Other: There are normal appearing salivary glands. Airway is patent. Lung apices are normal. No evide nt adenopathy. IMPRESSION: Near occlusion of the proximal internal carotid artery in the right. Hemodynamic signific ant stenosis of the proximal internal carotid arteries bilaterally right greater than left as describ ed.
[2017-03-21] MEDS: HYDROcodone/APAP 5-325MG 1 EACH TAB PO PRN ×2 (13:52→21:51)
[2017-03-21] MEDS: amLODIPine 5 MG TAB PO SCH ×2 (13:53→20:04)
[2017-03-21] MEDS: ATORVASTATIN 40 MG TAB PO SCH (13:53)
--- NOTE | 2017-03-21 15:03 | XR ---
Right hip HISTORY: Trauma and pain 2 views of the right hip There is contrast material present within the bladder. Bone mineralization, joint spaces and alignmen t are maintained. IMPRESSION: No fracture or dislocation.
[2017-03-21] MEDS ORDERED: amLODIPine 5 MG TAB PO STA (16:04)
[2017-03-21] MEDS ORDERED: HYDROCHLOROTHIAZIDE 50 MG TAB PO SCH (16:10)
[2017-03-21] MEDS: THIAMINE 100 MG TAB PO SCH (16:37)
--- NOTE | 2017-03-21 20:26 | CONS ---
CONSULTATION HISTORY: This is a 61-year-old, white male, who has been admitted to [facility] with history of left arm and leg weakness since Saturday. He has a history of seizure disorder, history of hypertension, history of alcohol abuse in the past and possible bipolar disorder. The patient was brought to the emergency room with left-sided weakness. He was on the floor for a for few days until he was brought into hospital. The patient had a complete stroke workup including MRI of the brain which showed acute right thalamic stroke and measuring 1.4 cm and possibility of the right thrombosed with possible dissection and CTA showed right near occlusion of the right internal carotid artery and a high-grade stenosis of the left carotid artery. MEDICAL HISTORY: History of hypertension, seizure disorder. EXAMINATION: Patient was seen in his room. His vital signs are stable. NECK: Supple. CHEST: Clear to auscultation. First and second sounds are normal. ABDOMEN: Soft. Femoral pulses are present. Patient has facial droop and has left arm weakness. 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 He can move his left leg but he cannot lift the left leg with motor deficit. IMPRESSION: Acute cerebrovascular accident, MRI showing evidence of acute right thalamic infarct. The patient has seen by neurology and the patient is to continue with telemetry monitoring. Physical therapy and the patient is on antiplatelet therapy. I have discussed in detail with the sister. She worked at [employer] as a nurse practitioner and the patient will be watched very closely and at this point, he there is no role of urgent surgical intervention because the patient has a neuro deficit on the left side. We will reevaluate tomorrow. Thank you very much for the consultation. MMODL / IJN: [id number] /
--- NOTE | 2017-03-21 22:31 | P.CNNES ---
History of Present Illness Consult date: 03/21/17 Requesting physician: Timothy Snyder Reason for Consult: CVA Chief complaint: left-sided weakness, CVA History of Present Illness: Neurologist is consulting on a 61-year-old male with known past history of hypertension, seizure disorder, nicotine dependence, alcohol abuse and possible bipolar. Patient presented to the ED with left-sided weakness of several days' duration. Patient has significant left sided arm weakness but is beginning to have some movement. Patient also had left-sided facial droop, weakness in the left lower extremity and difficulty with speech. Patient has been off of his medications for approximately 1 month. EKG showed sinus tachycardia. Patient does have hypertension. CT scan of the brain had shown no acute changes but did reveal mild to moderate atrophy and changes of chronic small vessel ischemic disease. MRI of the brain did show an acute ischemic right thalamic infarct measuring 1.4 cm. Abnormal periods of the right internal carotid artery which may represent thrombus or possibly dissection, CTA was ordered. Patient does have white matter disease. Carotid ultrasound showed 50-69% stenosis bilaterally in the internal carotid artery. Echo showing normal EF of 60-65%. At contact today, the patient was supine in bed, alert and oriented 3resting and in no acute distress. Patient was observed to have left upper extremity neglect. Patient did have strength in the left lower extremity however is decreased from the right. Patient states it is increasing since presentation. CT angiogram of the head and neck has been ordered. EEG is ordered and pending. continue neuro checks as ordered Review of Systems systems not noted in HPI or negative Past Medical History Past Medical History: Hypertension, Seizure Disorder Additional Past Medical History / Comment(s): ETOH - on and off for years. stopped drinking a week ago, was drinking 3 16 oz beers per day History of Any Multi-Drug Resistant Organisms: None Reported Past Surgical History: Hernia Repair, Tonsillectomy Past Anesthesia/Blood Transfusion Reactions: No Reported Reaction Past Psychological History: Anxiety Smoking Status: Current every day smoker Past Alcohol Use History: None Reported, Heavy Past Drug Use History: Marijuana - Past Family History Father Additional Family Medical History / Comment(s): heart disease Mother History Unknown: Yes Medications and Allergies Home Medications Medication Instructions Recorded Confirmed Type Acetaminophen [Tylenol Extra 500 mg PO DAILY PRN 03/20/17 03/20/17 History Strength] DULoxetine HCL [Cymbalta] 60 mg PO DAILY 03/20/17 03/20/17 History Divalproex [Depakote] 500 mg PO DAILY 03/20/17 03/20/17 History Fluticasone Nasal [place] [Flonase 1 spray EA NOSTRIL DAILY 03/20/17 03/20/17 History Nasal [place]] Loratadine [Claritin] 10 mg PO DAILY 03/20/17 03/20/17 History Multivitamins, Thera [Multivitamin 1 tab PO DAILY 03/20/17 03/20/17 History (formulary)] Naltrexone HCl [Revia] 50 mg PO DAILY 03/20/17 03/20/17 History Allergies Allergy/AdvReac Type Severity Reaction Status Date / Time No Known Allergies Allergy Verified 03/20/17 16:17 Physical Examination - Vital Signs Vital Signs: Vital Signs Temp Pulse Resp BP BP Pulse Ox 03/21/17 20:00 98.0 F 92 18 209/125 96 03/21/17 16:00 98.0 F 86 18 202/118 96 03/21/17 12:00 97.7 F 80 18 165/107 93 L 03/21/17 08:00 97.1 F L 78 18 192/96 95 03/21/17 04:20 180/97 03/21/17 04:00 97.2 F L 71 16 177/106 95 03/21/17 00:00 97.2 F L 71 16 147/89 99 Intake and Output 03/21/17 03/21/17 03/21/17 06:59 14:59 22:59 Intake Total 800 1137 Output Total 300 1600 Balance 500 1137 -1600 Intake: IV 800 800 Sodium Chloride 0.9% 1, 800 800 000 ml @ 100 mls/hr IV . Q10H [facility] Rx#:[id number] Oral 337 Output: Urine 300 1600 Other: Voiding Method Urinal Urinal # Voids 1 Weight 82.5 kg Constitutional: AOx3, cooperative HEENT: NC/AT, facial asymmetry is seen on the left Throat: Supple, no masses Respiratory: No increased work of breathing Cardiac: Regular rate and Rhythm GI: non tender, non distended Musculoskeletal: Clinical Trials Systems Administrator strengths are unequal in the bilateral upper extremities. Left 2/5, right upper extremity 4/5; left lower extremity 3/5, right lower extremity 4/5 Neurological: CN II-XII in tact, patient was AOx3, speech was intermittently mildly slurred and language was normal, unilateralizing weakness the left, no seizure activity note on physical exam. Sensation was normal. Integementary: no rash, no erythema Psychiatric: mood and affect appropriate Results - Laboratory Findings CBC and BMP: 03/21/17 05:34 03/21/17 05:34 Abnormal Lab Findings: Abnormal Labs 03/20/17 03/20/17 03/20/17 16:01 16:01 16:01 WBC 10.8 H RBC Hgb Hct Sodium 135 L BUN 26 H Glucose 116 H POC Glucose (mg/dL) Calcium 10.3 H AST 64 H Creatine Kinase Total Creatine Kinase 980 H CK-MB (CK-2) 4.2 H* Troponin I 0.043 H* Total Protein Albumin Cholesterol LDL Cholesterol, Calc Urine Protein Urine Ketones Urine Blood Urine RBC Urine Bacteria Hyaline Casts Urine Mucus 03/20/17 03/20/17 03/21/17 18:34 20:12 05:34 WBC RBC Hgb Hct Sodium BUN Glucose POC Glucose (mg/dL) 124 H Calcium AST Creatine Kinase Total Creatine Kinase CK-MB (CK-2) Troponin I Total Protein Albumin Cholesterol 230 H LDL Cholesterol, Calc 153 H Urine Protein 3+ H Urine Ketones 1+ H Urine Blood Moderate H Urine RBC 14 H Urine Bacteria Rare H Hyaline Casts 6 H Urine Mucus Few H 03/21/17 03/21/17 03/21/17 05:34 05:34 05:34 WBC RBC 4.06 L Hgb 12.6 L Hct 38.0 L Sodium 132 L BUN 33 H Glucose 113 H POC Glucose (mg/dL) Calcium AST Creatine Kinase 639 H Total Creatine Kinase CK-MB (CK-2) Troponin I 0.043 H* Total Protein 6.0 L Albumin 3.4 L Cholesterol LDL Cholesterol, Calc Urine Protein Urine Ketones Urine Blood Urine RBC Urine Bacteria Hyaline Casts Urine Mucus Assessment and Plan (1) Left-sided weakness Status: Acute (2) CVA (cerebral vascular accident) Status: Acute Plan: 1. CVA 2. Left-sided weakness Patient is known to have left-sided deficits as a result of a documented CVA and imaging. MRI also showed evidence of a possible thrombus in the right internal carotid artery. CTA of the head and neck have been ordered but not read. Echo showed concerns for possible thrombus. Cardiology consult. Echo showed EF of 60-65%. Carotid ultrasound showed 50-69% bilateral internal carotid artery stenosis. Continue PT, OT and speech for left sided weakness and speech deficits. Social work has also been consulted. EEG taken not read. Serum homocystine level is pending. Continue aspirin 325 mg as well as [id number] mg by mouth daily at bedtime. status: Neurology will continue to follow provide updates as needed or warranted. She'll free to contact our office with any questions. I discussed the patient's pertinent medical information with Dr. Hernandez. He agrees with the plan of care as implemented.
[2017-03-21] MEDS: hydrALAZINE HCL 25 MG TAB PO SCH (22:57)
[2017-03-22] MEDS: LISINOPRIL 10 MG TAB PO SCH ×2 (00:14→08:23)
[2017-03-22] MEDS: SODIUM CHLORIDE 0.9% 1,000 ML IV SCH (04:11)
[2017-03-22] MEDS: HYDROcodone/APAP 5-325MG 1 EACH TAB PO PRN ×3 (04:11→17:56)
[2017-03-22 06:40] LABS: Basophils % (A) 0 %; CH 32.5; CHCM 35.3; Eosinophils # (A) 0.2 k/uL (0-0.7); Eosinophils % (A) 3 %; HCT 37.1 % (39.0-53.0); HDW 2.37; HGB 12.7 gm/dL (13.0-17.5); Luc % (Auto) 2; Lymphocytes # (A) 1.9 k/uL (1.0-4.8); Lymphocytes % (A) 30 %; MCH 31.7 pg (25.0-35.0); MCHC 34.2 g/dL (31.0-37.0); MCV 92.5 fL (80.0-100.0); Mean Platelet Volume 6.5; Monocytes # (A) 0.4 k/uL (0-1.0); Monocytes % (A) 7 %; Neutrophils # (A) 3.7 k/uL (1.3-7.7); Neutrophils % (A) 59 %; RBC 4.01 m/uL (4.30-5.90); WBC 6.3 k/uL (3.8-10.6); WBC (Perox) 6.82
[2017-03-22 06:54] LABS: ALT 48 U/L (21-72); AST 54 U/L (17-59); Alkaline Phosphatase 74 U/L (38-126); Blood Urea Nitrogen 17 mg/dL (9-20); Calcium 8.9 mg/dL (8.4-10.2); Carbon Dioxide 24 mmol/L (22-30); Creatine Kinase 1013 U/L (55-170); Glucose 120 mg/dL (74-99); Non-African American GFR(MDRD) >60 (>60 ml/min/1.73 sqM); Potassium 3.1 mmol/L (3.5-5.1); Sodium 127 mmol/L (137-145); Total Bilirubin 0.6 mg/dL (0.2-1.3); Total Protein 5.9 g/dL (6.3-8.2)
[2017-03-22 06:59] LABS: Anion Gap 9 mmol/L; Chloride 94 mmol/L (98-107)
[2017-03-22] MEDS ORDERED: POTASSIUM CHLORIDE ER 20 MEQ TAB.ER PO STA (08:22)
[2017-03-22] MEDS: ATORVASTATIN 40 MG TAB PO SCH (08:23)
[2017-03-22] MEDS: DIVALPROEX 500 MG TABLET.DR PO SCH ×2 (08:23→21:04)
[2017-03-22] MEDS: LORATADINE 10 MG TAB PO SCH (08:23)
[2017-03-22] MEDS: FAMOTIDINE 20 MG TAB PO SCH (08:23)
[2017-03-22] MEDS: MULTIVITAMINS, THERA 1 EACH TAB PO SCH (08:23)
[2017-03-22] MEDS: hydrALAZINE HCL 25 MG TAB PO SCH ×3 (08:23→21:04)
[2017-03-22] MEDS: CLOPIDOGREL 75 MG TAB PO SCH (08:23)
[2017-03-22] MEDS: DULoxetine HCL 60 MG CAPSULE.DR PO SCH (08:23)
[2017-03-22] MEDS: NICOTINE 21MG/24HR PATCH TRANSDERM SCH (08:23)
[2017-03-22] MEDS: FLUTICASONE 50MCG/SPRAY NASAL 16GM EA NOSTRIL SCH (08:24)
[2017-03-22] MEDS: HEPARIN SODIUM,PORCINE 5,000 UNIT/ML 1 ML VIAL SQ SCH ×2 (08:24→21:04)
[2017-03-22] MEDS: amLODIPine 5 MG TAB PO SCH ×2 (08:24→21:04)
[2017-03-22] MEDS: THIAMINE 100 MG TAB PO SCH ×2 (11:21→15:25)
--- NOTE | 2017-03-22 11:29 | P.PN ---
Subjective Progress Note Date: 03/22/17 This is a 61-year-old male with a known past medical history of hypertension, seizure disorder, nicotine dependence, alcohol abuse and possible bipolar. Patient was brought into the emergency room with complaints of left-sided weakness. It apparently his symptoms started Saturday morning he reports that he was outside and fell to the ground he had to drag himself into the house. He reports laying on the floor for almost 3 days he was able to get a few sips of water but otherwise had not eaten or drank very much. His neighbor stopped by and called EMS. Patient was found have evidence of a stroke. He has significant left-sided arm weakness he's starting to have some movement in his left arm. He has a left-sided facial droop and weakness noted in the left leg. Patient is also having some confusion. He reports that he has been off of all of his medications including his seizure medications and psych medications. At his been about 6 months to years since he's been seen by either his psychiatrist or PCP. Patient was admitted to the sixth floor. Cardiology and neurology has been consulted. EKG is showing sinus tachycardia heart rate of 102. Telemetry has been showing a sinus rhythm. Patient has been hypertensive with systolic blood pressure in the 200s. He was given labetalol in the emergency room. Computed tomography scan of the brain had shown no acute changes but did reveal mild to moderate atrophy and changes of chronic small vessel ischemic disease. Neurology ordered an MRI of the brain which did show an acute ischemia of the right thalamus measuring 1.4 cm. Abnormal appearance of the right internal carotid artery which may represent thrombus or possibly dissection a CTA has been ordered. There is extensive white matter disease likely on the basis of remote ischemia. Carotid ultrasound showing 50-69% stenosis bilaterally in the internal carotid artery. Echo showing a normal EF of 60-65%. No sniffing of valvular abnormality. Echo does state to consider AMARJIT to definitively rule out thrombus. Awaiting cardiology evaluation. Patient also has evidence of acute rhabdomyolysis. His CPK levels were elevated in the 900s. He is currently on IV fluids. This is likely related to him being on a full floor for a prolonged period of time. Patient denies any fever, chills, sweats. Denies any nausea or vomiting. Denies any bowel movement changes or urinary symptoms. He has been to sepsis abuse programs in the past for his alcohol dependency. He does have a family history of strokes which include his father and grandfather. 03/22/2017 patient reporting some improvement in his left sided weakness. CPK level has gone up to 1013. He denies any chest pain or shortness of breath. Denies any nausea or vomiting. Denies any bowel movement changes or urinary symptoms. Was seen by vascular surgery regarding the carotid stenosis no need for intervention at this time. Blood pressures are showing improvement with adjustment of medications. Objective - Vital Signs Vital signs: Vital Signs Temp 98.4 F 03/22/17 07:55 Pulse 82 03/22/17 07:55 Resp 18 03/22/17 07:55 BP 151/96 03/22/17 07:55 Pulse Ox 94 L 03/22/17 07:55 Intake & Output 03/21/17 03/22/17 03/22/17 18:59 06:59 18:59 Intake Total 1137 240 Output Total 400 2725 1300 Balance 070 -2892 -4931 Intake: IV 800 Sodium Chloride 0.9% 1, 800 000 ml @ 100 mls/hr IV . Q10H [facility] Rx#:[id number] Oral 337 240 Output: Urine 400 2725 1300 Other: Voiding Method Urinal # Voids 1 - Exam Head normocephalic Neck supple no carotid bruits Lungs clear to auscultation bilaterally no wheezing or crackles Heart regular rate and rhythm S1-S2, no rub or gallop Abdomen is soft nontender nondistended positive bowel sounds no hepatosplenomegaly Extremities no edema Neuro alert and orientated to 2. Did not know place. Evidence of a left-sided facial droop. Difficulty with moving the left arm. 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 Lower extremity strength decreased on the left side. No evidence of numbness or sensation loss. - Labs CBC & Chem 7: 03/22/17 05:52 03/22/17 05:52 Labs: Abnormal Lab Results - Last 24 Hours (Table) 03/21/17 03/22/17 03/22/17 Range/Units 05:34 05:52 05:52 RBC 4.01 L (4.30-5.90) m/uL Hgb 12.7 L (13.0-17.5) gm/dL Hct 37.1 L (39.0-53.0) % RDW 16.0 H (11.5-15.5) % Sodium 127 L (137-145) mmol/L Potassium 3.1 L (3.5-5.1) mmol/L Chloride 94 L (98-107) mmol/L Glucose 120 H (74-99) mg/dL Creatine Kinase 1013 H (55-170) U/L Total Protein 5.9 L (6.3-8.2) g/dL Albumin 3.4 L (3.5-5.0) g/dL Homocysteine 17.67 H (4.00-14.00) umol/L Assessment and Plan Plan: 1. Acute CVA: MRI showing evidence of acute ischemia in the right thalamus. Neurology consulted. Continue with a full aspirin. Continue telemetry monitoring. Rule out any cardiac arrhythmias. Neurology and cardiology have been consulted. Echo showing an EF of 6065% with no significant valvular abnormality. case discussed with cardiology that felt that there was no need for a AMARJIT. Carotid ultrasound showing 50-69% bilateral internal carotid artery stenosis. Patient also having significant high blood pressures likely the cause of his stroke. PT OT have been consulted. Social work has been consulted for possible ECF placement 2. MRI shows evidence of possible thrombus in the right internal carotid artery. CTA of the neck shows near occlusion of the proximal internal carotid artery and the right. Hemodynamic significant stenosis of the proximal internal carotid arteries bilaterally right greater than left. Patient evaluated by vascular surgery they felt that there is no need for surgical intervention at this point. 3. Mildly elevated troponins: Likely due to a troponin leak. Evaluated by cardiology. Troponin leak not consistent with an acute myocardial infarction 4. Hypertensive emergency: Patient had sudden blood pressure in the 200s. Was initially given IV labetalol. Cardiology has adjusted blood pressure medications they've added lisinopril 5 twice a day and Norvasc 5 mg twice a day. they've also added hydralazine 25 mg 3 times a day. blood pressures have shown improvement. Hydrochlorothiazide was discontinued. 5. Nicotine dependence: Discussed smoking cessation for greater than 3 minutes. Start nicotine patch 6. Alcohol dependence: Patient reports last drink was about a week ago. Sister at bedside does report patient has a history of heavy drinking. Start the CIWA protocol with IV Ativan. Add thiamine and multivitamin 7. Possible history of bipolar: Patient had been following up with psychiatry outpatient. Reports he stopped taking his psych meds and seeing the psychiatrist about 6 months ago. 8. History of seizure disorder: Last seizure about a year ago. He reports that he has been off of his Depakote for a while now 9. Acute rhabdomyolysis: Secondary to being on the ground for extended period of time. CP K level has gone up to 1013. Continue with IV fluids. Repeat level in a.m. 10. Hyponatremia: Possibly related to the diuretic, patient also is a beer drinker. We'll continue normal saline. Place patient on fluids and restrictions of 1500 mL per day. Hydrochlorothiazide was discontinued. Repeat labs in a.m. Dr. Fortune has been consulted for inpatient evaluation GI prophylaxis Pepcid and DVT prophylaxis subcu heparin
--- NOTE | 2017-03-22 13:13 | XR ---
EXAMINATION TYPE: XR chest 2V DATE OF EXAM: 03/22/2017 COMPARISON: 03/20/2017 TECHNIQUE: PA and lateral views submitted. HISTORY: Possible aspiration, choking spell FINDINGS: The lungs are clear and there is no pneumothorax, pleural effusion, or focal pneumonia. Mild wedge deformity midthoracic spine with multilevel degenerative disc disease. Hyperinflation suggests COPD. Subsegmental changes at both lung bases suggestive of atelectasis. No pneumothorax. Prominence of the ascending aorta is stable. IMPRESSION: 1. Subsegmental changes at the lung bases suggestive of atelectasis. Correlate clinically to exclude early infiltrate. 2. Mild prominence of the ascending aorta correlate clinically..
--- NOTE | 2017-03-22 13:35 | P.CONS ---
History of Present Illness - Chief Complaint Gait disturbance - History of Present Illness I had the opportunity to see patient for inpatient consultation with regard to gait disturbance. He was admitted to [facility] March 21 acute onset left-sided weakness. Patient reports that in fact he may have been laying on floor for up to 3 days. Sister unsure. Seen by Dr. Chavez for hypertension and poor medical compliance. Seen by Dr. Esquivel for the stroke. Each therapy attempted evaluate patient but complicated cognition due to [place] medication. PT reports moderate assistance for bed mobility. OT prescribed. Workup includes initial head CT which demonstrated mild to moderate atrophy. Carotid Doppler with bilateral 60-70% stenosis. CTA demonstrates near occlusion right ICA and some occlusion left. Right hip x-ray negative. Brain MRI demonstrated right thalamic infarct and right internal carotid artery abnormality. Follow-up chest x-ray demonstrates atelectasis and prominence of ascending aorta. Previous functional history as elicited from patient corroborative by sister: 61 -year-old right-handed white male is lives in trailer home alone. Retired. Describes independent with cooking, laundry, standing shower and gait without device. Does not drive. Admits to smoking half pack a day and perhaps a rare drink. Other dictations indicated alcohol abuse. Family history of stroke in father. Review of Systems Review of systems: ENT: Denies sneezes or discharge. Eyes: Denies discharge or photophobia. Cardiac: Denies chest pain or palpitation. Pulmonary: Denies cough or shortness of breath. Gastrointestinal: Denies nausea, emesis, constipation, diarrhea. Genitourinary: Denies discharge or frequency. Musculoskeletal: Denies muscle or bone aches. Neurologic: Left-sided weakness and numbness. Endocrine: Denies shakes or sweats. Oncology: Denies cancers. Dermatologic: Denies rash, itching, pruritus. ALLERGY/immunology: Denies sneezes, rashes. Past Medical History Past Medical History: Hypertension, Seizure Disorder Additional Past Medical History / Comment(s): ETOH - on and off for years. stopped drinking a week ago, was drinking 3 16 oz beers per day History of Any Multi-Drug Resistant Organisms: None Reported Past Surgical History: Hernia Repair, Tonsillectomy Past Anesthesia/Blood Transfusion Reactions: No Reported Reaction Past Psychological History: Anxiety Smoking Status: Current every day smoker Past Alcohol Use History: None Reported, Heavy Past Drug Use History: Marijuana - Past Family History Father Additional Family Medical History / Comment(s): heart disease Mother History Unknown: Yes Medications and Allergies Home Medications Medication Instructions Recorded Confirmed Type Acetaminophen [Tylenol Extra 500 mg PO DAILY PRN 03/20/17 03/20/17 History Strength] DULoxetine HCL [Cymbalta] 60 mg PO DAILY 03/20/17 03/20/17 History Divalproex [Depakote] 500 mg PO DAILY 03/20/17 03/20/17 History Fluticasone Nasal [place] [Flonase 1 spray EA NOSTRIL DAILY 03/20/17 03/20/17 History Nasal [place]] Loratadine [Claritin] 10 mg PO DAILY 03/20/17 03/20/17 History Multivitamins, Thera [Multivitamin 1 tab PO DAILY 03/20/17 03/20/17 History (formulary)] Naltrexone HCl [Revia] 50 mg PO DAILY 03/20/17 03/20/17 History Allergies Allergy/AdvReac Type Severity Reaction Status Date / Time No Known Allergies Allergy Verified 03/20/17 16:17 Physical Exam Vitals: Vital Signs Temp Pulse Resp BP BP Pulse Ox 03/22/17 11:24 96.8 F L 89 18 178/114 97 03/22/17 07:55 98.4 F 82 18 151/96 94 L 03/22/17 04:00 97.2 F L 83 16 147/100 95 03/22/17 00:00 98.1 F 89 16 162/103 97 03/21/17 22:54 185/116 03/21/17 20:00 98.0 F 92 18 209/125 96 03/21/17 16:00 98.0 F 86 18 202/118 96 Intake and Output 03/21/17 03/22/17 03/22/17 22:59 06:59 14:59 Intake Total 240 Output Total 2049 1074 1300 Balance -2049 Intake: Oral 240 Output: Urine 2049 1074 1300 Other: Voiding Method Urinal # Voids 1 1 Skin: Atrophic, intact. General: Medium build and comfortable appearance. Head: Normocephalic, atraumatic. Eyes: Symmetric. Pupils equal round. Ears: Symmetric. Hearing within normal limits. Mouth: Clear. Neck: Supple. Carotid without bruit. Cardiac: Regular rate and rhythm. Lungs: Clear anteriorly and posteriorly. Abdomen: Soft active nontender. Extremities: Normal tone right side. Left arm in flexion posturing and left leg in extension posturing. Neurological: Mental status: Alert, cooperative, pleasant. Cranial nerves: Symmetric facial tone and trapezius. Motor: Normal strength and isolation right side. Left arm and poor flexion synergy and left leg and poor extension synergy. Sensation: Intact throughout. DTRs: Symmetric and equal throughout. Mobility: Sits with moderate assistance. Results CBC & Chem 7: 03/22/17 05:52 03/22/17 05:52 Labs: Abnormal Lab Results - Last 24 Hours (Table) 03/21/17 03/22/17 03/22/17 Range/Units 05:34 05:52 05:52 RBC 4.01 L (4.30-5.90) m/uL Hgb 12.7 L (13.0-17.5) gm/dL Hct 37.1 L (39.0-53.0) % RDW 16.0 H (11.5-15.5) % Sodium 127 L (137-145) mmol/L Potassium 3.1 L (3.5-5.1) mmol/L Chloride 94 L (98-107) mmol/L Glucose 120 H (74-99) mg/dL Creatine Kinase 1013 H (55-170) U/L Total Protein 5.9 L (6.3-8.2) g/dL Albumin 3.4 L (3.5-5.0) g/dL Homocysteine 17.67 H (4.00-14.00) umol/L Chest x-ray: report reviewed (O's recent chest x-ray with atelectasis and prominence of ascending aorta.) CT Scan - head: report reviewed (Initial head CT with mild to moderate atrophy.) MRI - head: report reviewed (Right thalamic infarct and abnormality right internal carotid artery. CTA demonstrated near occlusion right internal carotid without occlusion of left internal carotid carotid Doppler demonstrated bilateral 60-70% stenosis.) Assessment and Plan (1) CVA (cerebral vascular accident) Status: Acute Plan: Pressure and: 1. Gait disturbance. 2. Left hemiplegia due to right thalamic infarct 3. History of medical noncompliance 4. History of alcohol abuse. 5. Hypertension. 6. Seizure disorder. Comments and plan: At this time PT and ST are ongoing and await OT. Discussed with patient and sister that I am observing for the concerns and the ability tolerate and benefit from therapies out of bed. He did discuss with me that he decline therapy today although there are notes from PT and PIPING ENGINEER.
--- NOTE | 2017-03-22 14:25 | P.PN ---
Subjective Progress Note Date: 03/22/17 Principal diagnosis: CVA This is a 61-year-old gentleman with a history of seizure disorder and hypertension, noncompliant, quit taking Depakote and antihypertensives approximately 2 years ago. He began to notice left-sided weakness on Saturday, March 18 upon waking that progressively got worse throughout the day. By that evening he was crawling from his couch to his kitchen as he couldn't walk. He was eventually found on his kitchen floor by his neighbor yesterday March 20. And was brought to the emergency department. Computed tomography scan showed no acute intracranial process. Blood pressure was quite elevated to 20/135. He was found have a thickened left-sided weakness and a left facial droop. We were asked to see the patient in consultation as his troponins came back to be minimally elevated at 0.0432 with a CK of 980 and a CK-MB of 4.2. Patient has had a carotid duplex that showed hemodynamic significant stenosis to the proximal ICAs bilaterally corresponding to approximately 50-69% diameter stenosis and recommended carotid CTA or MRA. He has undergone MRI it showed acute ischemia of the right thalamus measuring 1.4 cm, abnormal appearance of the right internal carotid artery which may represent thrombus or possibly dissection and recommend a stat MRA or CTA. CT of the neck was completed and showed near occlusion of the proximal internal carotid artery and the right. Hemodynamic significant stenosis at the proximal internal carotid arteries bilaterally right greater than left. Patient has been quite hypertensive and was started on lisinopril, hydralazine and amlodipine. Continues to have significant left-sided weakness with minimal movement to of his left arm and leg. Noticeable facial droop. Lab values were reviewed and showed a BUN of 17 and creatinine 0.9. He continues to be hypertensive. Upon examination, patient is sitting up in bed. He does not have appear to have any difficulty swallowing. He denies any complaints of shortness of breath, chest discomfort, dizziness or lightheadedness. He has had no complaints of edema. She is complaining of significant left-sided weakness. Objective - Vital Signs Vital signs: Vital Signs Temp 96.8 F L 03/22/17 11:24 Pulse 89 03/22/17 11:24 Resp 18 03/22/17 11:24 BP 178/114 03/22/17 11:24 Pulse Ox 97 03/22/17 11:24 Intake & Output 03/21/17 03/22/17 03/22/17 18:59 06:59 18:59 Intake Total 1137 360 Output Total 400 2725 1500 Balance 479 -7756 -2799 Intake: IV 800 Sodium Chloride 0.9% 1, 800 000 ml @ 100 mls/hr IV . Q10H SILVERIO Rx#:[id number] Oral 337 360 Output: Urine 400 2725 1500 Other: Voiding Method Urinal # Voids 1 # Bowel Movements 0 - Exam PHYSICAL EXAMINATION: HEENT: Head is atraumatic, normocephalic. Pupils equal, round. Neck is supple. There is no elevated jugular venous pressure. HEART EXAMINATION: Heart sounds regular, S1 and S2 normal. No murmur or gallop heard. CHEST EXAMINATION: Lungs are clear to auscultation and precussion. No chest wall tenderness is noted on palpation or with deep breathing. ABDOMEN: Soft, nontender. Bowel sounds are heard. No organomegaly noted. EXTREMITIES: 2+ peripheral pulses with no evidence of peripheral edema and no calf tenderness noted. NEUROLOGIC patient is awake, alert and oriented x3. Left-sided facial droop and significant left-sided weakness noted. - Labs CBC & Chem 7: 03/22/17 05:52 03/22/17 05:52 Labs: Abnormal Lab Results - Last 24 Hours (Table) 03/21/17 03/22/17 03/22/17 Range/Units 05:34 05:52 05:52 RBC 4.01 L (4.30-5.90) m/uL Hgb 12.7 L (13.0-17.5) gm/dL Hct 37.1 L (39.0-53.0) % RDW 16.0 H (11.5-15.5) % Sodium 127 L (137-145) mmol/L Potassium 3.1 L (3.5-5.1) mmol/L Chloride 94 L (98-107) mmol/L Glucose 120 H (74-99) mg/dL Creatine Kinase 1013 H (55-170) U/L Total Protein 5.9 L (6.3-8.2) g/dL Albumin 3.4 L (3.5-5.0) g/dL Homocysteine 17.67 H (4.00-14.00) umol/L Assessment and Plan Plan: Assessment and plan #1 CVA #2 Uncontrolled hypertension #3 medication noncompliance #4 mild troponin leak not consistent with acute myocardial injury From Cardiology's perspective, we will increase lisinopril. We do not feel the patient requires a AMARJIT at this time. We will Continue to follow the patient and further recommendations accordingly. HOGSHEAD BUILDER note has been reviewed, I agree with a documented findings and plan of care. Patient was seen and examined.
--- NOTE | 2017-03-22 15:00 | PN ---
PROGRESS NOTE This is a 61-year-old gentleman who came in with a CVA with affecting left side upper and lower extremities. Patient has history of hypertension, history of seizure disorder, the patient had a CTA which showed a right internal carotid artery near occlusion and also MRA showed possible dissection, possible clot in the right ICA. On examination patient is still has a motor deficit on the left upper extremity. 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 The patient had some difficulty in swallowing. So patient had a swallow study done today. The patient has been seen by Dr. Sterling for rehab. At this point, we will watch very closely. The patient will have rehab when he recovers. We will discuss about surgical intervention. At this point, the patient should be on antiplatelet therapy and have physical therapy and will follow with you. Thank you very much. GIRISH / AKUA: [id number] /
[2017-03-22] MEDS ORDERED: DIVALPROEX 250 MG TABLET.DR PO SCH (21:01)
--- NOTE | 2017-03-22 21:02 | P.PN ---
Subjective Progress Note Date: 03/22/17 Principal diagnosis: CVA neurology is following on a 61-year-old male with known past history of hypertension, seizure disorder, nicotine dependence, alcohol abuse and possible bipolar. Patient presented to the ED with left-sided weakness of several days' duration. Patient has significant left-sided arm weakness but is beginning to have some movement. Patient also had left-sided facial droop, weakness in the left lower extremity and difficulty with speech. Patient's been off of his medications for approximately 1 month. EKG showed sinus tachycardia. Patient does have hypertension. CT scan of the brain had shown no acute changes but did reveal mild to moderate atrophy and changes of chronic small vessel ischemic disease. MRI of the brain did show an acute ischemic right thalamic infarct measuring 1.4 cm. Abnormal periods of the right internal carotid artery which may represent thrombus or possibly dissection, CTA was ordered. Patient does have white matter disease. Carotid ultrasound showed 50-69% stenosis bilaterally in the internal carotid artery. Echo showing normal EF of 60-65%. Interval update: March 22, 2017 Patient was semi-Fowlers in bed, acute and oriented 3 and in no acute distress. Patient had significant left-sided facial droop that was observable eye contact. Patient does have significant left upper extremity weakness and mild to moderate lower extremity weakness on the left. Patient also has some short-term memory difficulty on Mini-Mental status exam testing. Patient states he is improving. He does appear much more alert however, his left-sided deficits are significant. Objective - Vital Signs Vital signs: Vital Signs Temp 97.6 F 03/22/17 15:34 Pulse 87 03/22/17 15:34 Resp 18 03/22/17 15:34 BP 163/97 03/22/17 15:34 Pulse Ox 96 03/22/17 15:34 Intake & Output 03/22/17 03/22/17 03/23/17 06:59 18:59 06:59 Intake Total 360 Output Total 2725 2800 Balance -2725 -2440 Intake: Oral 360 Output: Urine 2725 2800 Other: Voiding Method Urinal # Voids 1 # Bowel Movements 0 - Exam Constitutional: AOx3, cooperative HEENT: NC/AT, facial asymmetry is seen. Throat: Supple, no masses Respiratory: No increased work of breathing Cardiac: Regular rate and Rhythm GI: non tender, non distended Musculoskeletal: Recoil Spring Winder strengths are on equal bilaterally left versus right. Left upper and lower extremities are weaker versus right. Left upper extremity to out of 5, right upper extremity 4 out of 5, left lower extremity 3 out of 5 and right lower extremity 4 out of 5. Neurological: CN II-XII in tact, patient was AOx3, speech and language are normal but speech is observed to be intermittently mildly slurred. Unilateralizing weakness on the left, no seizure activity note on physical exam. Sensation was normal. Integementary: no rash, no erythema Psychiatric: mood and affect appropriate - Labs CBC & Chem 7: 03/22/17 05:52 03/22/17 05:52 Labs: Abnormal Lab Results - Last 24 Hours (Table) 03/21/17 03/22/17 03/22/17 Range/Units 05:34 05:52 05:52 RBC 4.01 L (4.30-5.90) m/uL Hgb 12.7 L (13.0-17.5) gm/dL Hct 37.1 L (39.0-53.0) % RDW 16.0 H (11.5-15.5) % Sodium 127 L (137-145) mmol/L Potassium 3.1 L (3.5-5.1) mmol/L Chloride 94 L (98-107) mmol/L Glucose 120 H (74-99) mg/dL Creatine Kinase 1013 H (55-170) U/L Total Protein 5.9 L (6.3-8.2) g/dL Albumin 3.4 L (3.5-5.0) g/dL Homocysteine 17.67 H (4.00-14.00) umol/L Assessment and Plan (1) Left-sided weakness Status: Acute (2) CVA (cerebral vascular accident) Status: Acute (3) Hyperlipidemia Status: Acute Plan: 1. CVA 2. Left-sided weakness 3. Hyperlipidemia Patient is known to have left-sided deficits as a result of a documented CVA and imaging. MRI also showed evidence of a possible thrombus in the right internal carotid artery. CTA of the head and neck noted near occlusion of the proximal internal carotid artery on the right. Hemodynamically significant stenosis of the proximal internal carotid arteries bilaterally right greater than left. Vascular has been consulted. Echo showed concerns for possible thrombus. Cardiology consulted. Echo showed EF of 60-65%. Carotid ultrasound showed 50-69% bilateral internal carotid artery stenosis. Continue PT, OT and speech for left sided weakness and speech deficits. Social work has also been consulted. EEG was normal. Serum homocystine level was elevated. Prescribed foltx for elevated homocysteine level. Depakote level was noted to be subtherapeutic at 31. Patient is on Depakote 500 mg twice a day. Patient's Depakote will be increased to 750 mg twice a day. Repeat depakote level in 24 hours. Contact neurolgy if level is subtherapeutic on retesting. Continue Plavix 75 mg, po, daily as well as Lipitor 40 mg by mouth daily at bedtime. status: Neurology will follow on an as-needed basis. I discussed the patient's pertinent medical information with Dr. Hernandez. He agrees with the plan of care as implemented.
[2017-03-22] MEDS: LISINOPRIL 20 MG TAB PO SCH (21:04)
[2017-03-22] MEDS: DIVALPROEX 250 MG TABLET.DR PO SCH (21:34)
[2017-03-23] MEDS: HYDROcodone/APAP 5-325MG 1 EACH TAB PO PRN ×3 (00:35→21:10)
[2017-03-23 06:30] LABS: Basophils % (A) 0 %; CH 31.4; Eosinophils # (A) 0.2 k/uL (0-0.7); Eosinophils % (A) 3 %; HCT 35.9 % (39.0-53.0); HDW 2.29; Luc # (Auto) 0.13; Luc % (Auto) 2; Lymphocytes # (A) 2.1 k/uL (1.0-4.8); Lymphocytes % (A) 39 %; MCH 30.9 pg (25.0-35.0); MCHC 33.3 g/dL (31.0-37.0); MCV 92.7 fL (80.0-100.0); Mean Platelet Volume 6.3; Monocytes # (A) 0.4 k/uL (0-1.0); Monocytes % (A) 7 %; Neutrophils # (A) 2.7 k/uL (1.3-7.7); Neutrophils % (A) 49 %; RBC 3.87 m/uL (4.30-5.90); RDW 15.2 % (11.5-15.5); WBC 5.5 k/uL (3.8-10.6); WBC (Perox) 5.88
[2017-03-23 06:58] LABS: Anion Gap 7 mmol/L; Blood Urea Nitrogen 13 mg/dL (9-20); Calcium 8.8 mg/dL (8.4-10.2); Carbon Dioxide 24 mmol/L (22-30); Chloride 98 mmol/L (98-107); Glucose 106 mg/dL (74-99); Non-African American GFR(MDRD) >60 (>60 ml/min/1.73 sqM); Potassium 3.4 mmol/L (3.5-5.1); Sodium 129 mmol/L (137-145)
[2017-03-23 07:00] LABS: Creatine Kinase 852 U/L (55-170)
[2017-03-23] MEDS: NICOTINE 21MG/24HR PATCH TRANSDERM SCH (08:36)
[2017-03-23] MEDS: LORATADINE 10 MG TAB PO SCH (08:36)
[2017-03-23] MEDS: DIVALPROEX 250 MG TABLET.DR PO SCH ×2 (08:36→21:10)
[2017-03-23] MEDS: HEPARIN SODIUM,PORCINE 5,000 UNIT/ML 1 ML VIAL SQ SCH ×2 (08:37→21:10)
[2017-03-23] MEDS: DULoxetine HCL 60 MG CAPSULE.DR PO SCH (08:37)
[2017-03-23] MEDS: FLUTICASONE 50MCG/SPRAY NASAL 16GM EA NOSTRIL SCH (08:37)
[2017-03-23] MEDS: CLOPIDOGREL 75 MG TAB PO SCH (08:37)
[2017-03-23] MEDS: LISINOPRIL 20 MG TAB PO SCH ×2 (08:38→21:10)
[2017-03-23] MEDS: hydrALAZINE HCL 25 MG TAB PO SCH ×3 (08:38→21:10)
[2017-03-23] MEDS: ATORVASTATIN 40 MG TAB PO SCH (08:38)
[2017-03-23] MEDS: FAMOTIDINE 20 MG TAB PO SCH (08:38)
[2017-03-23] MEDS: amLODIPine 5 MG TAB PO SCH ×2 (08:39→21:09)
[2017-03-23] MEDS: CYANOCOBALAMIN-FA-PYRIDOXINE 1 EACH TAB PO SCH (08:40)
[2017-03-23] MEDS: MULTIVITAMINS, THERA 1 EACH TAB PO SCH (08:40)
--- NOTE | 2017-03-23 13:28 | P.PN ---
Subjective Progress Note Date: 03/23/17 Principal diagnosis: CVA This is a 61-year-old gentleman with a history of seizure disorder and hypertension, noncompliant, quit taking Depakote and antihypertensives approximately 2 years ago. He began to notice left-sided weakness on Saturday, March 18 upon waking that progressively got worse throughout the day. By that evening he was crawling from his couch to his kitchen as he couldn't walk. He was eventually found on his kitchen floor by his neighbor yesterday March 20. And was brought to the emergency department. Computed tomography scan showed no acute intracranial process. Blood pressure was quite elevated to 20/135. He was found have a thickened left-sided weakness and a left facial droop. We were asked to see the patient in consultation as his troponins came back to be minimally elevated at 0.0432 with a CK of 980 and a CK-MB of 4.2. Patient has had a carotid duplex that showed hemodynamic significant stenosis to the proximal ICAs bilaterally corresponding to approximately 50-69% diameter stenosis and recommended carotid CTA or MRA. He has undergone MRI it showed acute ischemia of the right thalamus measuring 1.4 cm, abnormal appearance of the right internal carotid artery which may represent thrombus or possibly dissection and recommend a stat MRA or CTA. CT of the neck was completed and showed near occlusion of the proximal internal carotid artery and the right. Hemodynamic significant stenosis at the proximal internal carotid arteries bilaterally right greater than left. Patient has been quite hypertensive and was started on lisinopril, hydralazine and amlodipine. Continues to have significant left-sided weakness with minimal movement to of his left arm and leg. Noticeable facial droop. Lab values were reviewed and showed a BUN of 13 and creatinine 0.9. His blood pressure is somewhat better controlled. He is currently on amlodipine 5 mg by mouth twice a day, a drowsy and 25 mg by mouth 3 times a day and lisinopril 20 mg by mouth twice a day. Upon examination, patient is sitting in a chair. He does not have appear to have any difficulty swallowing. He denies any complaints of shortness of breath, chest discomfort, dizziness or lightheadedness. He has had no complaints of edema. He continues to complain of significant left-sided weakness that seems to be improving some each day. Objective - Vital Signs Vital signs: Vital Signs Temp 97.9 F 03/23/17 08:00 Pulse 84 03/23/17 08:00 Resp 18 03/23/17 08:00 BP 155/94 03/23/17 08:00 Pulse Ox 94 L 03/23/17 08:00 Intake & Output 03/22/17 03/23/17 03/23/17 18:59 06:59 18:59 Intake Total 360 1520 Output Total 2800 950 1000 Balance -2440 -950 520 Weight 103.5 kg Intake: IV 800 Sodium Chloride 0.9% 1, 800 000 ml @ 100 mls/hr IV . Q10H SILVERIO Rx#:[id number] Oral 360 720 Output: Urine 2800 950 1000 Other: Voiding Method Urinal Urinal # Voids 2 # Bowel Movements 0 0 - Exam PHYSICAL EXAMINATION: HEENT: Head is atraumatic, normocephalic. Pupils equal, round. Neck is supple. There is no elevated jugular venous pressure. HEART EXAMINATION: Heart sounds regular, S1 and S2 normal. No murmur or gallop heard. CHEST EXAMINATION: Lungs are clear to auscultation and precussion. No chest wall tenderness is noted on palpation or with deep breathing. ABDOMEN: Soft, nontender. Bowel sounds are heard. No organomegaly noted. EXTREMITIES: 2+ peripheral pulses with no evidence of peripheral edema and no calf tenderness noted. NEUROLOGIC patient is awake, alert and oriented x3. Left-sided facial droop and left-sided weakness noted. - Labs CBC & Chem 7: 03/23/17 05:34 03/23/17 05:36 Labs: Abnormal Lab Results - Last 24 Hours (Table) 03/23/17 03/23/17 Range/Units 05:34 05:36 RBC 3.87 L (4.30-5.90) m/uL Hgb 12.0 L (13.0-17.5) gm/dL Hct 35.9 L (39.0-53.0) % Sodium 129 L (137-145) mmol/L Potassium 3.4 L (3.5-5.1) mmol/L Glucose 106 H (74-99) mg/dL Creatine Kinase 852 H (55-170) U/L Assessment and Plan Plan: Assessment and plan #1 CVA #2 Uncontrolled hypertension #3 medication noncompliance #4 mild troponin leak not consistent with acute myocardial injury From Cardiology's perspective, we will continue current medications. We will Continue to follow the patient and further recommendations accordingly. OCCUPATIONAL THERAPIST'S ASSISTANT note has been reviewed, I agree with a documented findings and plan of care. Patient was seen and examined.
[2017-03-24 06:45] LABS: Basophils % (A) 0 %; CH 31.4; CHCM 33.9; Eosinophils # (A) 0.2 k/uL (0-0.7); Eosinophils % (A) 3 %; HCT 39.4 % (39.0-53.0); HDW 2.29; HGB 13.1 gm/dL (13.0-17.5); Luc # (Auto) 0.08; Luc % (Auto) 2; Lymphocytes # (A) 1.8 k/uL (1.0-4.8); Lymphocytes % (A) 35 %; MCH 30.8 pg (25.0-35.0); MCHC 33.1 g/dL (31.0-37.0); Mean Platelet Volume 6.3; Monocytes # (A) 0.4 k/uL (0-1.0); Monocytes % (A) 7 %; Neutrophils # (A) 2.7 k/uL (1.3-7.7); Neutrophils % (A) 53 %; RBC 4.23 m/uL (4.30-5.90); WBC 5.1 k/uL (3.8-10.6); WBC (Perox) 5.14
[2017-03-24] MEDS: NICOTINE 21MG/24HR PATCH TRANSDERM SCH (08:03)
[2017-03-24] MEDS: amLODIPine 5 MG TAB PO SCH ×2 (08:04→20:39)
[2017-03-24] MEDS: LORATADINE 10 MG TAB PO SCH (08:04)
[2017-03-24] MEDS: CLOPIDOGREL 75 MG TAB PO SCH (08:04)
[2017-03-24] MEDS: FAMOTIDINE 20 MG TAB PO SCH (08:05)
[2017-03-24] MEDS: FLUTICASONE 50MCG/SPRAY NASAL 16GM EA NOSTRIL SCH (08:05)
[2017-03-24] MEDS: DIVALPROEX 250 MG TABLET.DR PO SCH ×2 (08:05→20:39)
[2017-03-24] MEDS: LISINOPRIL 20 MG TAB PO SCH ×2 (08:05→20:39)
[2017-03-24] MEDS: ATORVASTATIN 40 MG TAB PO SCH (08:05)
[2017-03-24] MEDS: hydrALAZINE HCL 25 MG TAB PO SCH (08:06)
[2017-03-24] MEDS: HEPARIN SODIUM,PORCINE 5,000 UNIT/ML 1 ML VIAL SQ SCH ×2 (08:06→20:39)
[2017-03-24] MEDS: MULTIVITAMINS, THERA 1 EACH TAB PO SCH (08:07)
[2017-03-24] MEDS: DULoxetine HCL 60 MG CAPSULE.DR PO SCH (08:07)
[2017-03-24] MEDS: CYANOCOBALAMIN-FA-PYRIDOXINE 1 EACH TAB PO SCH (08:07)
[2017-03-24] MEDS: HYDROcodone/APAP 5-325MG 1 EACH TAB PO PRN ×2 (08:17→20:39)
--- NOTE | 2017-03-24 11:38 | P.PN ---
Subjective Progress Note Date: 03/24/17 03/23/2017 patient reporting some improvement in his left sided weakness. CPK level 852. He denies any chest pain or shortness of breath. Denies any nausea or vomiting. Denies any bowel movement changes or urinary symptoms. Was seen by vascular surgery regarding the carotid stenosis no need for intervention at this time. Blood pressures are showing improvement with adjustment of medications. Able to stand and walk a few steps with help of 2 person assistance On 03/24/2017 patient is alert and oriented 3 he denies any pain or discomfort at this time his still has significant weakness in his left upper extremity and left lower extremity he is able to stand up and walk a few steps with assistance of 2 person and a walker that he uses with his right hand. Objective - Vital Signs Vital signs: Vital Signs Temp 97.5 F L 03/24/17 08:00 Pulse 88 03/24/17 08:00 Resp 18 03/24/17 08:00 BP 160/100 03/24/17 08:00 Pulse Ox 95 03/24/17 08:00 Intake & Output 03/23/17 03/24/17 03/24/17 18:59 06:59 18:59 Intake Total 1640 180 Output Total 2000 350 650 Balance -360 -350 -470 Weight 77.6 kg Intake: IV 800 Sodium Chloride 0.9% 1, 800 000 ml @ 100 mls/hr IV . Q10H SILVERIO Rx#:[id number] Oral 840 180 Output: Urine 2000 350 650 Other: Voiding Method Urinal Urinal Urinal # Voids 1 # Bowel Movements 0 - Exam HEENT was left sided drooping Neck is supple no JVD no goiter no lymphadenopathy Chest exam reveals a few scattered rhonchi no wheezing Cardiac exam reveals regular heart sounds no murmurs Abdomen is soft nontender no organomegaly Extremity exam reveals no edema no cyanosis or clubbing Neurological examination reveals left-sided facial drooping and severe weakness in the left upper extremity and left lower extremity patient is able to move his shoulder and elbow but has significant weakness in his hand he is unable to make a fist he is able to stand up was two-person assistance he has severe weakness in his left lower extremity. - Labs CBC & Chem 7: 03/24/17 05:45 03/23/17 05:36 Labs: Abnormal Lab Results - Last 24 Hours (Table) 03/24/17 03/24/17 Range/Units 05:45 05:45 RBC 4.23 L (4.30-5.90) m/uL Creatine Kinase 787 H (55-170) U/L Assessment and Plan Plan: 1. Acute CVA: MRI showing evidence of acute ischemia in the right thalamus. Neurology consulted. Continue with a full aspirin. Continue telemetry monitoring. Rule out any cardiac arrhythmias. Neurology and cardiology have been consulted. Echo showing an EF of 6065% with no significant valvular abnormality. case discussed with cardiology that felt that there was no need for a AMARJIT. Carotid ultrasound showing 50-69% bilateral internal carotid artery stenosis. Patient also having significant high blood pressures likely the cause of his stroke. PT OT have been consulted. Social work has been consulted for possible ECF placement 2. MRI shows evidence of possible thrombus in the right internal carotid artery. CTA of the neck shows near occlusion of the proximal internal carotid artery and the right. Hemodynamic significant stenosis of the proximal internal carotid arteries bilaterally right greater than left. Patient evaluated by vascular surgery they felt that there is no need for surgical intervention at this point. 3. Mildly elevated troponins: Likely due to a troponin leak. Evaluated by cardiology. Troponin leak not consistent with an acute myocardial infarction 4. Hypertensive emergency: Patient had sudden blood pressure in the 200s. Was initially given IV labetalol. Cardiology has adjusted blood pressure medications they've added lisinopril 5 twice a day and Norvasc 5 mg twice a day. they've also added hydralazine 25 mg 3 times a day. blood pressures have shown improvement. Hydrochlorothiazide was discontinued. 5. Nicotine dependence: Discussed smoking cessation for greater than 3 minutes. Start nicotine patch 6. Alcohol dependence: Patient reports last drink was about a week ago. Sister at bedside does report patient has a history of heavy drinking. Start the CIWA protocol with IV Ativan. Add thiamine and multivitamin 7. Possible history of bipolar: Patient had been following up with psychiatry outpatient. Reports he stopped taking his psych meds and seeing the psychiatrist about 6 months ago. 8. History of seizure disorder: Last seizure about a year ago. He reports that he has been off of his Depakote for a while now 9. Acute rhabdomyolysis: Secondary to being on the ground for extended period of time. CP K level has gone up to 1013. Continue with IV fluids. Repeat level in a.m. 10. Hyponatremia: Possibly related to the diuretic, patient also is a beer drinker. We'll continue normal saline. Place patient on fluids and restrictions of 1500 mL per day. Hydrochlorothiazide was discontinued. Repeat labs in a.m. Dr. Fortune has been consulted for inpatient evaluation GI prophylaxis Pepcid and DVT prophylaxis subcu heparin
--- NOTE | 2017-03-24 12:20 | PN ---
PROGRESS NOTE Mr. Merino is a 61-year-old male who presented with cerebrovascular accident. He has history of hypertension. He has continued to have weakness and tried to ambulate. He was noted to have significant carotid disease. He denies any chest pain. His breathing has been stable. He denies any dizziness or palpitation. He continues to be on amlodipine 5 mg twice a day, Lipitor 40 mg daily, Plavix 75 mg daily, hydralazine 25 mg 3 times a day and lisinopril 20 mg twice a day. PHYSICAL EXAMINATION: Blood pressure running between the 120s to 160s, heart rate in the 80s. LUNGS: Clear. Heart regular rate and rhythm S1, S2. No S3. No rub. ABDOMEN: Soft and nontender. EXTREMITIES: No edema. LAB DATA: Lab data revealed a hemoglobin of 13.1. IMPRESSION: 1. Status post cerebrovascular accident. 2. Hypertension, remains elevated. 3. Carotid disease. 4. Prior history of chronic tobacco use. 5. Prior history of alcohol intake. 6. History of seizure. RECOMMENDATION: From the cardiac standpoint, I will increase the dose of hydralazine to optimize his blood pressure control. Continue rest of his medical regimen. The patient has been evaluated for inpatient rehab. His carotid disease has been followed by Dr. Powers. MMODL / IJN: [id number] /
[2017-03-24] MEDS: hydrALAZINE HCL 50 MG TAB PO SCH ×2 (18:04→22:22)
[2017-03-25 06:37] LABS: Basophils % (A) 0 %; CH 31.6; CHCM 33.9; Eosinophils # (A) 0.2 k/uL (0-0.7); Eosinophils % (A) 4 %; HCT 37.8 % (39.0-53.0); HDW 2.25; HGB 12.6 gm/dL (13.0-17.5); Luc # (Auto) 0.13; Luc % (Auto) 2; Lymphocytes % (A) 32 %; MCH 31.2 pg (25.0-35.0); MCHC 33.4 g/dL (31.0-37.0); MCV 93.5 fL (80.0-100.0); Monocytes # (A) 0.4 k/uL (0-1.0); Monocytes % (A) 7 %; Neutrophils # (A) 3.5 k/uL (1.3-7.7); Neutrophils % (A) 56 %; RBC 4.04 m/uL (4.30-5.90); RDW 15.1 % (11.5-15.5); WBC 6.4 k/uL (3.8-10.6); WBC (Perox) 6.54
[2017-03-25 06:49] LABS: ALT 45 U/L (21-72); AST 58 U/L (17-59); Alkaline Phosphatase 67 U/L (38-126); Anion Gap 8 mmol/L; Blood Urea Nitrogen 18 mg/dL (9-20); Calcium 9.1 mg/dL (8.4-10.2); Carbon Dioxide 24 mmol/L (22-30); Chloride 99 mmol/L (98-107); Glucose 90 mg/dL (74-99); Non-African American GFR(MDRD) >60 (>60 ml/min/1.73 sqM); Potassium 3.4 mmol/L (3.5-5.1); Sodium 131 mmol/L (137-145); Total Bilirubin 0.4 mg/dL (0.2-1.3); Total Protein 5.9 g/dL (6.3-8.2)
[2017-03-25] MEDS ORDERED: POTASSIUM CHLORIDE ER 20 MEQ TAB.ER PO STA (08:25)
[2017-03-25] MEDS: CYANOCOBALAMIN-FA-PYRIDOXINE 1 EACH TAB PO SCH (08:27)
[2017-03-25] MEDS: DIVALPROEX 250 MG TABLET.DR PO SCH ×2 (08:27→20:33)
[2017-03-25] MEDS: amLODIPine 5 MG TAB PO SCH ×2 (08:29→20:33)
[2017-03-25] MEDS: ATORVASTATIN 40 MG TAB PO SCH (08:30)
[2017-03-25] MEDS: DULoxetine HCL 60 MG CAPSULE.DR PO SCH (08:30)
[2017-03-25] MEDS: CLOPIDOGREL 75 MG TAB PO SCH (08:30)
[2017-03-25] MEDS: HEPARIN SODIUM,PORCINE 5,000 UNIT/ML 1 ML VIAL SQ SCH ×2 (08:31→20:33)
[2017-03-25] MEDS: FAMOTIDINE 20 MG TAB PO SCH (08:31)
[2017-03-25] MEDS: LISINOPRIL 20 MG TAB PO SCH ×2 (08:33→20:33)
[2017-03-25] MEDS: hydrALAZINE HCL 50 MG TAB PO SCH ×3 (08:33→20:33)
[2017-03-25] MEDS: LORATADINE 10 MG TAB PO SCH (08:34)
[2017-03-25] MEDS: MULTIVITAMINS, THERA 1 EACH TAB PO SCH (08:34)
[2017-03-25] MEDS: HYDROcodone/APAP 5-325MG 1 EACH TAB PO PRN ×3 (08:59→20:56)
[2017-03-25] MEDS: NICOTINE 21MG/24HR PATCH TRANSDERM SCH (08:59)
[2017-03-25] MEDS: FLUTICASONE 50MCG/SPRAY NASAL 16GM EA NOSTRIL SCH (09:01)
[2017-03-25 12:41] LABS: Glucose,Whole Blood 109 mg/dL (75-99)
--- NOTE | 2017-03-25 13:06 | P.PN ---
Subjective Progress Note Date: 03/25/17 Principal diagnosis: CVA This is a 61-year-old gentleman with a history of seizure disorder and hypertension, noncompliant, quit taking Depakote and antihypertensives approximately 2 years ago. He began to notice left-sided weakness on Saturday, March 18 upon waking that progressively got worse throughout the day. By that evening he was crawling from his couch to his kitchen as he couldn't walk. He was eventually found on his kitchen floor by his neighbor yesterday March 20. And was brought to the emergency department. Computed tomography scan showed no acute intracranial process. Blood pressure was quite elevated to 221/135. He was found have a thickened left-sided weakness and a left facial droop. We were asked to see the patient in consultation as his troponins came back to be minimally elevated at 0.0432 with a CK of 980 and a CK-MB of 4.2. Patient has had a carotid duplex that showed hemodynamic significant stenosis to the proximal ICAs bilaterally corresponding to approximately 50-69% diameter stenosis and recommended carotid CTA or MRA. He has undergone MRI it showed acute ischemia of the right thalamus measuring 1.4 cm, abnormal appearance of the right internal carotid artery which may represent thrombus or possibly dissection and recommend a stat MRA or CTA. CT of the neck was completed and showed near occlusion of the proximal internal carotid artery and the right. Hemodynamic significant stenosis at the proximal internal carotid arteries bilaterally right greater than left. Patient had been quite hypertensive and was started on lisinopril, hydralazine and amlodipine. Continues to have left-sided weakness with some improvement. Facial droop is also somewhat improved. Lab values were reviewed and showed a BUN of 18 and creatinine 1.03. His blood pressure is better controlled. He is currently on amlodipine 5 mg by mouth twice a day, Hydralazine 50 mg by mouth 3 times a day and lisinopril 20 mg by mouth twice a day. Upon examination, patient is sitting in a chair. He denies any complaints of shortness of breath , chest discomfort, dizziness or lightheadedness. He has had no complaints of edema. He continues to complain of left-sided weakness that seems to be improving some each day. He is anticipating discharge to rehab soon. Objective - Vital Signs Vital signs: Vital Signs Temp 98.4 F 03/25/17 12:00 Pulse 95 10/09/17 12:00 Resp 16 03/25/17 12:00 BP 124/84 03/25/17 12:00 Pulse Ox 98 03/25/17 12:00 Intake & Output 03/24/17 03/25/17 03/25/17 18:59 06:59 18:59 Intake Total 716 210 Output Total 1410 950 Balance -694 -740 Weight 99 kg Intake: IV 10 Sodium Chloride 0.9% 1, 10 000 ml @ 100 mls/hr IV . Q10H SILVERIO Rx#:[id number] Oral 716 200 Output: Urine 1410 950 Other: Voiding Method Urinal Urinal # Voids 1 - Exam PHYSICAL EXAMINATION: HEENT: Head is atraumatic, normocephalic. Pupils equal, round. Neck is supple. There is no elevated jugular venous pressure. HEART EXAMINATION: Heart sounds regular, S1 and S2 normal. No murmur or gallop heard. CHEST EXAMINATION: Lungs are clear to auscultation and precussion. No chest wall tenderness is noted on palpation or with deep breathing. ABDOMEN: Soft, nontender. Bowel sounds are heard. No organomegaly noted. EXTREMITIES: 2+ peripheral pulses with no evidence of peripheral edema and no calf tenderness noted. NEUROLOGIC patient is awake, alert and oriented x3. Left-sided facial droop and left-sided weakness noted. - Labs CBC & Chem 7: 03/25/17 05:30 03/25/17 05:30 Labs: Abnormal Lab Results - Last 24 Hours (Table) 03/25/17 03/25/17 03/25/17 Range/Units 05:30 05:30 05:30 RBC 4.04 L (4.30-5.90) m/uL Hgb 12.6 L (13.0-17.5) gm/dL Hct 37.8 L (39.0-53.0) % Sodium 131 L (137-145) mmol/L Potassium 3.4 L (3.5-5.1) mmol/L POC Glucose (mg/dL) (75-99) mg/dL Creatine Kinase 586 H (55-170) U/L Total Protein 5.9 L (6.3-8.2) g/dL Albumin 3.4 L (3.5-5.0) g/dL 03/25/17 Range/Units 12:33 RBC (4.30-5.90) m/uL Hgb (13.0-17.5) gm/dL Hct (39.0-53.0) % Sodium (137-145) mmol/L Potassium (3.5-5.1) mmol/L POC Glucose (mg/dL) 109 H (75-99) mg/dL Creatine Kinase (55-170) U/L Total Protein (6.3-8.2) g/dL Albumin (3.5-5.0) g/dL Assessment and Plan Plan: Assessment and plan #1 CVA #2 Uncontrolled hypertension #3 medication noncompliance #4 mild troponin leak not consistent with acute myocardial injury From Cardiology's perspective, we will continue current medications. We anticipate the patient will be discharged to rehab facility soon. BODY BUMPER note has been reviewed, I agree with a documented findings and plan of care. Patient was seen and examined.
[2017-03-25] MEDS ORDERED: LACTULOSE 20 GM/30 ML CUP PO ONE (15:32)
--- NOTE | 2017-03-25 15:34 | P.PN ---
Subjective Progress Note Date: 03/25/17 This is a 61-year-old male with a known past medical history of hypertension, seizure disorder, nicotine dependence, alcohol abuse and possible bipolar. Patient was brought into the emergency room with complaints of left-sided weakness. It apparently his symptoms started Saturday morning he reports that he was outside and fell to the ground he had to drag himself into the house. He reports laying on the floor for almost 3 days he was able to get a few sips of water but otherwise had not eaten or drank very much. His neighbor stopped by and called EMS. Patient was found have evidence of a stroke. He has significant left-sided arm weakness he's starting to have some movement in his left arm. He has a left-sided facial droop and weakness noted in the left leg. Patient is also having some confusion. He reports that he has been off of all of his medications including his seizure medications and psych medications. At his been about 6 months to years since he's been seen by either his psychiatrist or PCP. Patient was admitted to the sixth floor. Cardiology and neurology has been consulted. EKG is showing sinus tachycardia heart rate of 102. Telemetry has been showing a sinus rhythm. Patient has been hypertensive with systolic blood pressure in the 200s. He was given labetalol in the emergency room. Computed tomography scan of the brain had shown no acute changes but did reveal mild to moderate atrophy and changes of chronic small vessel ischemic disease. Neurology ordered an MRI of the brain which did show an acute ischemia of the right thalamus measuring 1.4 cm. Abnormal appearance of the right internal carotid artery which may represent thrombus or possibly dissection a CTA has been ordered. There is extensive white matter disease likely on the basis of remote ischemia. Carotid ultrasound showing 50-69% stenosis bilaterally in the internal carotid artery. Echo showing a normal EF of 60-65%. No sniffing of valvular abnormality. Echo does state to consider AMARJIT to definitively rule out thrombus. Awaiting cardiology evaluation. Patient also has evidence of acute rhabdomyolysis. His CPK levels were elevated in the 900s. He is currently on IV fluids. This is likely related to him being on a full floor for a prolonged period of time. Patient denies any fever, chills, sweats. Denies any nausea or vomiting. Denies any bowel movement changes or urinary symptoms. He has been to sepsis abuse programs in the past for his alcohol dependency. He does have a family history of strokes which include his father and grandfather. 03/22/2017 patient reporting some improvement in his left sided weakness. CPK level has gone up to 1013. He denies any chest pain or shortness of breath. Denies any nausea or vomiting. Denies any bowel movement changes or urinary symptoms. Was seen by vascular surgery regarding the carotid stenosis no need for intervention at this time. Blood pressures are showing improvement with adjustment of medications. 03/25/2017 patient having improvement in movement in his left arm and leg. Also improving in strength. Awaiting insurance authorization for patient to be admitted into the inpatient rehab program at [facility]. She reports several days since last bowel movement Objective - Vital Signs Vital signs: Vital Signs Temp 98.4 F 03/25/17 15:08 Pulse 98 03/25/17 15:08 Resp 16 03/25/17 15:08 BP 169/89 03/25/17 15:08 Pulse Ox 98 03/25/17 15:08 Intake & Output 03/24/17 03/25/17 03/25/17 18:59 06:59 18:59 Intake Total 716 390 Output Total 1410 950 Balance -694 -560 Weight 99 kg Intake: IV 10 Sodium Chloride 0.9% 1, 10 000 ml @ 100 mls/hr IV . Q10H SILVERIO Rx#:[id number] Oral 716 380 Output: Urine 1410 950 Other: Voiding Method Urinal Urinal # Voids 1 - Exam Head normocephalic Neck supple no carotid bruits Lungs clear to auscultation bilaterally no wheezing or crackles Heart regular rate and rhythm S1-S2, no rub or gallop Abdomen is soft nontender nondistended positive bowel sounds no hepatosplenomegaly Extremities no edema Neuro alert and orientated to 2. Did not know place. Evidence of a left-sided facial droop. Difficulty with moving the left arm. Hand scallop cutter machine decreased on the left side. Lower extremity strength decreased on the left side. No evidence of numbness or sensation loss. Patient has had some improvement in left arm and leg muscle strength. - Labs CBC & Chem 7: 03/25/17 05:30 03/25/17 05:30 Labs: Abnormal Lab Results - Last 24 Hours (Table) 03/25/17 03/25/17 03/25/17 Range/Units 05:30 05:30 05:30 RBC 4.04 L (4.30-5.90) m/uL Hgb 12.6 L (13.0-17.5) gm/dL Hct 37.8 L (39.0-53.0) % Sodium 131 L (137-145) mmol/L Potassium 3.4 L (3.5-5.1) mmol/L POC Glucose (mg/dL) (75-99) mg/dL Creatine Kinase 586 H (55-170) U/L Total Protein 5.9 L (6.3-8.2) g/dL Albumin 3.4 L (3.5-5.0) g/dL 03/25/17 Range/Units 12:33 RBC (4.30-5.90) m/uL Hgb (13.0-17.5) gm/dL Hct (39.0-53.0) % Sodium (137-145) mmol/L Potassium (3.5-5.1) mmol/L POC Glucose (mg/dL) 109 H (75-99) mg/dL Creatine Kinase (55-170) U/L Total Protein (6.3-8.2) g/dL Albumin (3.5-5.0) g/dL Assessment and Plan Plan: 1. Acute CVA: MRI showing evidence of acute ischemia in the right thalamus. Neurology consulted. Continue with a full aspirin. Continue telemetry monitoring. Rule out any cardiac arrhythmias. Neurology and cardiology have been consulted. Echo showing an EF of 6065% with no significant valvular abnormality. case discussed with cardiology that felt that there was no need for a AMARJIT. Carotid ultrasound showing 50-69% bilateral internal carotid artery stenosis. Patient also having significant high blood pressures likely the cause of his stroke. PT OT have been consulted. Elevated homocystine level patient was started on Folbic 2. MRI shows evidence of possible thrombus in the right internal carotid artery. CTA of the neck shows near occlusion of the proximal internal carotid artery and the right. Hemodynamic significant stenosis of the proximal internal carotid arteries bilaterally right greater than left. Patient evaluated by vascular surgery they felt that there is no need for surgical intervention at this point. 3. Mildly elevated troponins: Likely due to a troponin leak. Evaluated by cardiology. Troponin leak not consistent with an acute myocardial infarction 4. Hypertensive emergency: Patient had sudden blood pressure in the 200s. Was initially given IV labetalol. Cardiology has adjusted blood pressure medications. Blood pressure is currently stable 5. Nicotine dependence: Discussed smoking cessation for greater than 3 minutes. Start nicotine patch 6. Alcohol dependence: Patient reports last drink was about a week ago. Sister at bedside does report patient has a history of heavy drinking. Start the CIWA protocol with IV Ativan. Add thiamine and multivitamin 7. Possible history of bipolar: Patient had been following up with psychiatry outpatient. Reports he stopped taking his psych meds and seeing the psychiatrist about 6 months ago. 8. History of seizure disorder: Last seizure about a year ago. He reports that he has been off of his Depakote for a while now 9. Acute rhabdomyolysis: Secondary to being on the ground for extended period of time. Continue to monitor CPK levels. We are seeing improvement. 10. Hyponatremia: Possibly related to the diuretic, patient also is a beer drinker. We'll continue normal saline. Place patient on fluids and restrictions of 1500 mL per day. Hydrochlorothiazide was discontinued. Repeat labs in a.m. Awaiting insurance authorization for patient to be accepted in inpatient rehab at [facility]. Anticipate discharge tomorrow GI prophylaxis Pepcid and DVT prophylaxis subcu heparin I performed an examination of the patient and discussed their management with the physician Corporate Account Executive. I have reviewed the Physician Corporate Account Executive's notes and agree with the documented findings and plan of care
--- NOTE | 2017-03-25 19:36 | EEG ---
ELECTROENCEPHALOGRAM REPORT DATE OF SERVICE: 03/21/2017 REASON FOR TESTING: Stroke and history of seizures. CURRENT ANTIEPILEPTIC MEDICATIONS: Depakote. DESCRIPTION OF THE PROCEDURE: This EEG was performed using a 21 channel digital electroencephalograph, following international 10-20 system. DESCRIPTION OF THE RECORDING: From the beginning of the tracing, and with the patient's eyes closed, the background rhythm was mostly consisting of 8 hertz alpha frequency in the posterior occipital leads. No obvious asymmetry is seen. Photic stimulation was performed with a minimal driving response seen. No pathological waves were elicited. Hyperventilation was not performed. Occasional movement artifacts are seen. The patient remains awake throughout the tracing. No epileptiform discharges were noticed. His EKG lead showed a regular rate and rhythm. INTERPRETATION: This awake EEG can be considered within normal limits. There was no asymmetry seen. No epileptiform discharges were noticed. The absence of epileptiform discharges does not rule out the diagnosis of epilepsy, therefore clinical correlation is recommended. MMSEJAL / AKUA: [id number] /
[2017-03-26] MEDS: HYDROcodone/APAP 5-325MG 1 EACH TAB PO PRN ×2 (05:05→11:23)
[2017-03-26 06:28] LABS: ALT 66 U/L (21-72); AST 64 U/L (17-59); Alkaline Phosphatase 77 U/L (38-126); Anion Gap 10 mmol/L; Blood Urea Nitrogen 18 mg/dL (9-20); Calcium 9.5 mg/dL (8.4-10.2); Carbon Dioxide 21 mmol/L (22-30); Chloride 100 mmol/L (98-107); Glucose 89 mg/dL (74-99); Non-African American GFR(MDRD) >60 (>60 ml/min/1.73 sqM); Potassium 3.6 mmol/L (3.5-5.1); Sodium 131 mmol/L (137-145); Total Bilirubin 0.4 mg/dL (0.2-1.3); Total Protein 6.1 g/dL (6.3-8.2)
[2017-03-26 06:45] LABS: Basophils % (A) 1 %; CH 31.6; Eosinophils # (A) 0.2 k/uL (0-0.7); Eosinophils % (A) 3 %; HCT 40.9 % (39.0-53.0); HDW 2.23; HGB 13.6 gm/dL (13.0-17.5); Luc # (Auto) 0.14; Luc % (Auto) 2; Lymphocytes # (A) 2.5 k/uL (1.0-4.8); Lymphocytes % (A) 38 %; MCHC 33.2 g/dL (31.0-37.0); MCV 93.1 fL (80.0-100.0); Mean Platelet Volume 6.5; Monocytes # (A) 0.5 k/uL (0-1.0); Monocytes % (A) 7 %; Neutrophils # (A) 3.2 k/uL (1.3-7.7); Neutrophils % (A) 49 %; RBC 4.39 m/uL (4.30-5.90); RDW 15.1 % (11.5-15.5); WBC 6.6 k/uL (3.8-10.6); WBC (Perox) 6.38
[2017-03-26] MEDS: NICOTINE 21MG/24HR PATCH TRANSDERM SCH (08:37)
[2017-03-26] MEDS: HEPARIN SODIUM,PORCINE 5,000 UNIT/ML 1 ML VIAL SQ SCH (08:38)
[2017-03-26] MEDS: FLUTICASONE 50MCG/SPRAY NASAL 16GM EA NOSTRIL SCH (08:38)
[2017-03-26] MEDS: DIVALPROEX 250 MG TABLET.DR PO SCH (08:40)
[2017-03-26] MEDS: LISINOPRIL 20 MG TAB PO SCH (08:40)
[2017-03-26] MEDS: CLOPIDOGREL 75 MG TAB PO SCH (08:41)
[2017-03-26] MEDS: CYANOCOBALAMIN-FA-PYRIDOXINE 1 EACH TAB PO SCH (08:41)
[2017-03-26] MEDS: MULTIVITAMINS, THERA 1 EACH TAB PO SCH (08:41)
[2017-03-26] MEDS: LORATADINE 10 MG TAB PO SCH (08:41)
[2017-03-26] MEDS: amLODIPine 5 MG TAB PO SCH (08:41)
[2017-03-26] MEDS: ATORVASTATIN 40 MG TAB PO SCH (08:42)
[2017-03-26] MEDS: DULoxetine HCL 60 MG CAPSULE.DR PO SCH (08:42)
[2017-03-26] MEDS: hydrALAZINE HCL 50 MG TAB PO SCH ×2 (08:43→14:35)
[2017-03-26] MEDS: FAMOTIDINE 20 MG TAB PO SCH (08:43)
[2017-03-26 11:54] VITALS: RESP 16; TEMP 97.1
[2017-03-26 14:17] VITALS: BP 170/87; PULSE 72
--- NOTE | 2017-03-26 14:33 | P.DS ---
Providers Date of admission: 03/20/17 17:20 Expected date of discharge: 03/26/17 Attending physician: Pushpa Bennett Consults: 03/20/17 17:21 Consult Physician Urgent Consulting Provider: Lakshmi Hernandez Consult Reason/Comments: cva Do you want consulting provider notified?: Yes 03/21/17 08:59 Consult Physician Routine Consulting Provider: Reyes Chavez Consult Reason/Comments: elevated cardiac enzymes, HTN Do you want consulting provider notified?: Yes 03/21/17 13:27 Consult Physician Urgent Consulting Provider: Rajeev Powers Consult Reason/Comments: nearly occluded carotid Do you want consulting provider notified?: Yes 03/22/17 08:25 Consult Physician Routine Consulting Provider: Xander Sterling Consult Reason/Comments: inpatient rehab Do you want consulting provider notified?: Yes Primary care physician: Stated None Hospital Course: Discharge diagnosis 1. Acute CVA: MRI showing evidence of acute ischemia in the right thalamus. Evaluated by neurology. Neurology placed patient on Plavix 75 mg by mouth daily. Aspirin 325 mg was discontinued. Patient was seen evaluated by both neurology and cardiology. Echo showing an EF of 60-65% with no significant valvular abnormality. case discussed with cardiology that felt that there was no need for a AMARJIT. Carotid ultrasound showing 50-69% bilateral internal carotid artery stenosis. Patient also having significant high blood pressures likely the cause of his stroke. PT OT have been consulted. Elevated homocystine level patient was started on Folbic 2. MRI shows evidence of possible thrombus in the right internal carotid artery. CTA of the neck shows near occlusion of the proximal internal carotid artery and the right. Hemodynamic significant stenosis of the proximal internal carotid arteries bilaterally right greater than left. Patient evaluated by vascular surgery they felt that there is no need for surgical intervention at this point. 3. Mildly elevated troponins: Likely due to a troponin leak. Evaluated by cardiology. Troponin leak not consistent with an acute myocardial infarction 4. Hypertensive emergency: Patient had sudden blood pressure in the 200s. Was initially given IV labetalol. Cardiology has adjusted blood pressure medications. Blood pressure is currently stable. Lisinopril Norvasc and hydralazine were added during this admission. Patient's blood pressures have shown improvement. 5. Nicotine dependence: Discussed smoking cessation for greater than 3 minutes. Start nicotine patch 6. Alcohol dependence: Patient reports last drink was about a week ago. Sister at bedside does report patient has a history of heavy drinking. Start the CIWA protocol with IV Ativan. Continue multivitamin 7. Possible history of bipolar: Patient had been following up with psychiatry outpatient. Reports he stopped taking his psych meds and seeing the psychiatrist about 6 months ago. 8. History of seizure disorder: Last seizure about a year ago. He reports that he has been off of his Depakote for a while now 9. Acute rhabdomyolysis: Secondary to being on the ground for extended period of time. Continue to monitor CPK levels. We are seeing improvement. CPK level at discharge is 470 10. Hyponatremia: Possibly related to the diuretic, patient also is a beer drinker. We'll continue normal saline. Place patient on fluids and restrictions of 1500 mL per day. Hydrochlorothiazide was discontinued. Repeat labs in a.m. sodium at discharge 131 Hospital course This is a 61-year-old male with a known past medical history of hypertension, seizure disorder, nicotine dependence, alcohol abuse and possible bipolar. Patient was brought into the emergency room with complaints of left-sided weakness. It apparently his symptoms started Saturday morning he reports that he was outside and fell to the ground he had to drag himself into the house. He reports laying on the floor for almost 3 days he was able to get a few sips of water but otherwise had not eaten or drank very much. His neighbor stopped by and called EMS. Patient was found have evidence of a stroke. He has significant left-sided arm weakness he's starting to have some movement in his left arm. He has a left-sided facial droop and weakness noted in the left leg. Patient is also having some confusion. He reports that he has been off of all of his medications including his seizure medications and psych medications. At his been about 6 months to years since he's been seen by either his psychiatrist or PCP. Patient was admitted to the sixth floor. Cardiology and neurology has been consulted. EKG is showing sinus tachycardia heart rate of 102. Telemetry has been showing a sinus rhythm. Patient has been hypertensive with systolic blood pressure in the 200s. He was given labetalol in the emergency room. Computed tomography scan of the brain had shown no acute changes but did reveal mild to moderate atrophy and changes of chronic small vessel ischemic disease. Neurology ordered an MRI of the brain which did show an acute ischemia of the right thalamus measuring 1.4 cm. Abnormal appearance of the right internal carotid artery which may represent thrombus or possibly dissection a CTA has been ordered. There is extensive white matter disease likely on the basis of remote ischemia. Carotid ultrasound showing 50-69% stenosis bilaterally in the internal carotid artery. Echo showing a normal EF of 60-65%. No sniffing of valvular abnormality. Echo does state to consider AMARJIT to definitively rule out thrombus. Awaiting cardiology evaluation. Patient also has evidence of acute rhabdomyolysis. His CPK levels were elevated in the 900s. He is currently on IV fluids. This is likely related to him being on a full floor for a prolonged period of time. Patient denies any fever, chills, sweats. Denies any nausea or vomiting. Denies any bowel movement changes or urinary symptoms. He has been to sepsis abuse programs in the past for his alcohol dependency. He does have a family history of strokes which include his father and grandfather. Patient was evaluated by both neurology and cardiology during this admission. Diagnosed with a CVA. MRI had showed evidence of acute ischemia in the right thalamus. Aspirin discontinued by neurology and they've placed him on Plavix 75 mg daily. Patient has had some improvement in his left sided weakness and facial droop. He is able to work with physical therapy. He has been evaluated by the rehab physician and will be transferred to inpatient rehab at [facility]. Patient was also evaluated by cardiology in regards to the stroke and hypertension. Cardiology has adjusted blood pressure medications. Patient will be receiving his dose of hydralazine before discharge today. Patient will need to continue blood pressures monitored at the rehab center. Further adjustments of medications may be needed. Patient also had evidence of acute rhabdomyolysis he had been on the floor for an extended period time. CPK levels haven't trended down with IV fluid hydration. Patient's also had some evidence of hyponatremia and had to be on fluid restrictions. Sodium at discharge is 131. Patient was also evaluated by vascular surgery in regards to the carotid artery stenosis and gastric surgery felt that there is no need for surgery at this time. Patient is stable for transfer to rehab. Please refer to chart for any further details. I performed an examination of the patient and discussed their management with the physician Star Route Mail Driver. I have reviewed the Physician Star Route Mail Driver's notes and agree with the documented findings and plan of care Patient Condition at Discharge: Stable Plan - Discharge Summary New Discharge Prescriptions: New amLODIPine [Norvasc] 5 mg PO BID tab Atorvastatin [Lipitor] 40 mg PO DAILY tab Clopidogrel [Plavix] 75 mg PO DAILY tab Ssosbfagygijpv-MP-Gvlbhphnjf [Folbic] 1 each PO DAILY@1200 tab Divalproex [Depakote] 750 mg PO BID tab hydrALAZINE HCL [Apresoline] 50 mg PO TID tab Lisinopril [Zestril] 20 mg PO BID tab Nicotine 21Mg/24Hr Patch [Habitrol] 1 patch TRANSDERM DAILY #0 patch Continue Fluticasone Nasal [place] [Flonase Nasal [place]] 1 spray EA NOSTRIL DAILY Acetaminophen [Tylenol Extra Strength] 500 mg PO DAILY PRN PRN Reason: Pain Loratadine [Claritin] 10 mg PO DAILY Naltrexone HCl [Revia] 50 mg PO DAILY DULoxetine HCL [Cymbalta] 60 mg PO DAILY Multivitamins, Thera [Multivitamin (formulary)] 1 tab PO DAILY Discontinued Divalproex [Depakote] 500 mg PO DAILY Discharge Medication List Acetaminophen [Tylenol Extra Strength] 500 mg PO DAILY PRN 03/20/17 [History] DULoxetine HCL [Cymbalta] 60 mg PO DAILY 03/20/17 [History] Fluticasone Nasal [place] [Flonase Nasal [place]] 1 spray EA NOSTRIL DAILY 03/20/17 [History] Loratadine [Claritin] 10 mg PO DAILY 03/20/17 [History] Multivitamins, Thera [Multivitamin (formulary)] 1 tab PO DAILY 03/20/17 [History ] Naltrexone HCl [Revia] 50 mg PO DAILY 03/20/17 [History] Atorvastatin [Lipitor] 40 mg PO DAILY tab 03/26/17 [Rx] Clopidogrel [Plavix] 75 mg PO DAILY tab 03/26/17 [Rx] [id number]-QS-Kymhcychfk [Folbic] 1 each PO DAILY@1200 tab 03/26/17 [Rx] Divalproex [Depakote] 750 mg PO BID tab 03/26/17 [Rx] Lisinopril [Zestril] 20 mg PO BID tab 03/26/17 [Rx] Nicotine 21Mg/24Hr Patch [Habitrol] 1 patch TRANSDERM DAILY #0 patch 03/26/17 [ Rx] amLODIPine [Norvasc] 5 mg PO BID tab 03/26/17 [Rx] hydrALAZINE HCL [Apresoline] 50 mg PO TID tab 03/26/17 [Rx] Follow up Appointment(s)/Referral(s): Lakshmi Hernandez MD [STAFF PHYSICIAN] - 1 Week None,Stated [Primary Care Provider] - 1 Week Activity/Diet/Wound Care/Special Instructions: Diet: cardiac Patient discharged to inpatient rehab program at [facility] Discharge Disposition: OTHER INSTITUTION NOT DEFINED
--- NOTE | 2017-03-26 15:21 | P.PN ---
Subjective Progress Note Date: 03/26/17 Principal diagnosis: CVA This 61-year-old gentleman with history of seizure disorder and hypertension, as well as noncompliance who presented to the hospital and ruled in for CVA. He was seen and examined today, overall doing much better. Arrangements are being made for the patient to be transferred to rehab today. He has been up ambulating in the hallway Objective - Vital Signs Vital signs: Vital Signs Temp 97.1 F L 03/26/17 11:51 Pulse 72 03/26/17 14:17 Resp 16 03/26/17 11:51 BP 170/87 03/26/17 14:17 Pulse Ox 96 03/26/17 11:51 Intake & Output 03/25/17 03/26/17 03/26/17 18:59 06:59 18:59 Intake Total 590 490 Output Total 950 600 300 Balance -360 -600 190 Weight 75.5 kg Intake: IV 10 Sodium Chloride 0.9% 1, 10 000 ml @ 100 mls/hr IV . Q10H SILVERIO Rx#:[id number] Intake, IV Titration 10 Amount Sodium Chloride 0.9% 1, 10 000 ml @ 100 mls/hr IV . Q10H SILVERIO Rx#:[id number] Oral 580 480 Output: Urine 950 600 300 Other: Voiding Method Urinal # Voids 1 1 0 # Bowel Movements 0 - Exam PHYSICAL EXAMINATION: HEENT: Head is atraumatic, normocephalic. Pupils equal, round. Neck is supple. There is no elevated jugular venous pressure. HEART EXAMINATION: Heart sounds regular, S1 and S2 normal. No murmur or gallop heard. CHEST EXAMINATION: Lungs are clear to auscultation and precussion. No chest wall tenderness is noted on palpation or with deep breathing. ABDOMEN: Soft, nontender. Bowel sounds are heard. No organomegaly noted. EXTREMITIES: 2+ peripheral pulses with no evidence of peripheral edema and no calf tenderness noted. NEUROLOGIC patient is awake, alert and oriented x3. Left-sided facial droop and left-sided weakness noted. - Labs CBC & Chem 7: 03/26/17 05:25 03/26/17 05:25 Labs: Abnormal Lab Results - Last 24 Hours (Table) 03/25/17 03/26/17 Range/Units 15:54 05:25 Sodium 131 L (137-145) mmol/L Carbon Dioxide 21 L (22-30) mmol/L AST 64 H (17-59) U/L Creatine Kinase 470 H (55-170) U/L Total Protein 6.1 L (6.3-8.2) g/dL Assessment and Plan Plan: Assessment and plan #1 CVA #2 Uncontrolled hypertension #3 medication noncompliance #4 mild troponin leak not consistent with acute myocardial injury From Cardiology's perspective, we will continue current medications. Being discharged to rehab today. DNP note has been reviewed, I agree with a documented findings and plan of care. Patient was seen and examined.
== END 2017-03-26 15:38 | DRG 65 ==
LOC: EC 15:41 → SUPCPDRO 15:41 → 6SEL 17:20
PROVIDERS: ADMIT Internal Medicine; ATTEND Internal Medicine
DX: I63.9 Cerebral infarction, unspecified (principal); M62.82 Rhabdomyolysis; G81.94 Hemiplegia, unspecified affecting left nondominant side; E87.1 Hypo-osmolality and hyponatremia; R13.10 Dysphagia, unspecified; I16.1 Hypertensive emergency; J98.11 Atelectasis; I10 Essential (primary) hypertension; F17.200 Nicotine dependence, unspecified, uncomplicated; F10.20 Alcohol dependence, uncomplicated; F31.9 Bipolar disorder, unspecified; G40.909 Epilepsy, unspecified, not intractable, without status epilepticus; R29.810 Facial weakness; F41.9 Anxiety disorder, unspecified; E78.5 Hyperlipidemia, unspecified; I65.23 Occlusion and stenosis of bilateral carotid arteries; W19.XXXA Unspecified fall, initial encounter; T42.6X6A Underdosing of other antiepileptic and sedative-hypnotic drugs, initial encounter; T46.5X6A Underdosing of other antihypertensive drugs, initial encounter; Z71.6 Tobacco abuse counseling; Z90.49 Acquired absence of other specified parts of digestive tract; Z87.19 Personal history of other diseases of the digestive system; Z82.3 Family history of stroke; Z79.82 Long term (current) use of aspirin; Z79.899 Other long term (current) drug therapy
CPT/HCPCS: 36415; 70450; 70498; 70551; 71020; 73502; 80048; 80053; 80061; 80164; 81001; 82550; 82553; 83090; 84484; 85025; 85610; 85730; 93005; 93306; 93880; 95819; 96374; 99285

== ENCOUNTER 2023-04-10 10:23 | Emergency (ER) | payer BC ==
--- NOTE | 2023-04-10 11:25 | ED ---
Fall HPI - General Chief Complaint: Fall Stated Complaint: fall Time Seen by Provider: 04/10/23 11:06 Source: patient, RN notes reviewed Mode of arrival: ambulatory Limitations: no limitations - History of Present Illness Initial Comments: This is a 67-year-old male who presents to the emergency department for left hip pain. Patient states that 3 days ago, he accidentally rolled out of bed, landing on his left side. Denies hitting his head or sustaining any loss of consciousness. Not taking any blood thinners. He has since had pain to the left hip. He is still able to ambulate, but his friend states that he is standing abnormally and tends to lean to the other side. He is taking Tylenol with no significant relief in symptoms and he is unable to take NSAIDs. Patient does have residual left-sided weakness following a CVA in 2017. The patient lives alone, however he has a friend who is a nurse who checks on him regularly. MD Complaint: fall Onset/Timin -: days(s) - Related Data Home Medications Medication Instructions Recorded Confirmed Atorvastatin [Lipitor] 40 mg PO HS 04/10/23 04/10/23 buPROPion XL [Wellbutrin XL] 150 mg PO DAILY 04/10/23 04/10/23 carvediloL [Coreg] 6.25 mg PO BID 04/10/23 04/10/23 Previous Rx's Medication Instructions Recorded Divalproex [Depakote] 750 mg PO BID tab 03/26/17 amLODIPine [Norvasc] 5 mg PO BID tab 03/26/17 HYDROcodone/APAP 5-325MG [[place] 1 tab PO Q6HR PRN 3 Days #12 tab 04/10/23 5-325] Allergies Allergy/AdvReac Type Severity Reaction Status Date / Time No Known Allergies Allergy Verified 04/10/23 13:05 Review of Systems ROS Statement: Those systems with pertinent positive or pertinent negative responses have been documented in the HPI. ROS Other: All systems not noted in ROS Statement are negative. Past Medical History Past Medical History: Hypertension, Seizure Disorder Additional Past Medical History / Comment(s): ETOH - on and off for years. stopped drinking a week ago, was drinking 3 16 oz beers per day History of Any Multi-Drug Resistant Organisms: None Reported Past Surgical History: Hernia Repair, Tonsillectomy Past Anesthesia/Blood Transfusion Reactions: No Reported Reaction Past Psychological History: Anxiety Smoking Status: Current every day smoker Past Alcohol Use History: None Reported, Heavy Past Drug Use History: Marijuana - Past Family History Father Additional Family Medical History / Comment(s): heart disease Mother History Unknown: Yes General Exam Limitations: no limitations General appearance: alert, in no apparent distress Head exam: Present: atraumatic, normocephalic, normal inspection Respiratory exam: Present: normal lung sounds bilaterally. Absent: respiratory distress, wheezes, rales, rhonchi, stridor Cardiovascular Exam: Present: regular rate, normal rhythm, normal heart sounds. Absent: systolic murmur, diastolic murmur, rubs, gallop, clicks Extremities exam: Present: other (There is some mild swelling in the area of the left greater trochanter. There is no ecchymosis, erythema, or areas of tenderness. 2+ DP and PT pulses. Capillary refill less than 1 second.) Neurological exam: Present: alert, oriented X3, CN II-XII intact Psychiatric exam: Present: normal affect, normal mood Skin exam: Present: warm, dry, intact, normal color. Absent: rash Course Vital Signs 04/10/23 10:43 Temperature 98.6 F Pulse Rate 78 Respiratory 18 Rate Blood Pressure 143/90 O2 Sat by Pulse 98 Oximetry Medical Decision Making - Medical Decision Making This is a 67-year-old male who presents to the emergency department for left hip pain after a fall. Was pt. sent in by a medical professional or institution? @ -No Did you speak to anyone other than the patient for history? @ -His friend provided a large portion of the history as well and somewhat reiterated what the patient said. Did you review nursing and triage notes? @ -Yes, and I agree, it is accurate with regards to the patient's symptoms. Were old charts reviewed? @ -No Differential Diagnosis? @ -Differential Musculoskeletal: Muscular strain, contusion, ligament sprain, fracture, arthritis, septic arthritis, bursitis, cellulitis, muscle spasm, nerve compression, DVT, arterial occlusion, herpes zoster, electrolyte abnormality, tumor.... This is not meant to be in all inclusive list EKG interpreted by me (3pts min.)? @ -Not obtained X-rays interpreted by me (1pt min.)? @ -X-ray of the left hip obtained. My interpretation identifies no acute fractures. CT interpreted by me (1pt min.)? @ -Computed tomography scan of the left hip obtained. My interpretation identifies no acute fractures. U/S interpreted by me (1pt. min.)? @ -Not obtained What testing was considered but not performed? (CT, X-rays, U/S, labs)? Why? @ -None What meds were considered but not given? Why? @ -None Did you discuss the management of the patient with other professionals? @ -No Did you reconcile home meds? @ -No Was smoking cessation discussed for >3mins.? @ -No Was critical care preformed (if so, how long)? @ -No Were there social determinants of health that impacted care today? How? (Homelessness, low income, unemployed, alcoholism, drug addiction, transportation, low edu. Level, literacy, decrease access to med. care, intermediate, rehab)? @ -No Was there de-escalation of care discussed even if they declined? (Discuss DNR or withdrawal of care, Hospice)? @ -No What co-morbidities impacted this encounter? (DM, HTN, Smoking, COPD, CAD, Cancer, CVA, Hep., AIDS, mental health diagnosis, sleep apnea, morbid obesity)? @ -Hx of CVA Was patient admitted / discharged? @ -Discharged. Physical examination revealed mild fullness and no other acute changes. X-ray of the left hip obtained revealing no acute process. Given the patient's distress and difficulty with ambulation, we did decide to proceed with a computed tomography scan of the left hip as well for better evaluation. This again identified no acute fractures. It did note a simple cyst on the lateral left femoral neck measuring 8 mm. Discussed with the patient that the cause of this is not entirely clear, and it is also unclear how long it has been there. Given the persistence of the patient's pain, he is advised to follow up with orthopedics for further evaluation. Case management was able to make him an appointment with [facility] for this Saturday, on 04/[address] Mendez. Given that he is taking Tylenol with no relief in symptoms and is struggling to get around at home, I was willing to give him a prescription for a 3 day course of [place]. He is advised to take this very sparingly when the pain is the most severe. Undiagnosed new problem with uncertain prognosis? @ -None Drug Therapy requiring intensive monitoring for toxicity (Heparin, Nitro, Insulin, Cardizem)? @ -None Were any procedures done? @ -None Diagnosis/symptom? @ -Fall, left hip pain, simple cyst of bone Acute, or Chronic, or Acute on Chronic? @ -Acute Uncomplicated (without systemic symptoms) or Complicated (systemic symptoms)? @ -Uncomplicated Side effects of treatment? @ -None Exacerbation, Progression, or Severe Exacerbation] @ -Not applicable Poses a threat to life or bodily function? @ -This is having an impact on his ability to ambulate Return precautions reviewed in depth, the patient is instructed to return to the emergency department with any new, worsening, or concerning symptoms. Patient verbalized understanding. This case was discussed in detail with the attending ED physician, Dr. Horner. Presentation, findings, and treatment plan discussed in detail as well. - Lab Data Lab Results 04/10/23 Range/Units 13:16 Urine Color Light Yellow Urine Appearance Clear (Clear) Urine pH 7.0 (5.0-8.0) Ur Specific [place] 1.020 (1.001-1.035) Urine Protein 1+ (Negative) Urine Glucose (UA) Negative (Negative) Urine Ketones Negative (Negative) Urine Blood Small (Negative) Urine Nitrite Negative (Negative) Urine Bilirubin Negative (Negative) Urine Urobilinogen <2.0 (<2.0) mg/dL Ur Leukocyte Esterase Negative (Negative) Urine RBC 10 H (0-5) /hpf Urine WBC 1 (0-5) /hpf - Radiology Data Radiology results: report reviewed, image reviewed Disposition Clinical Impression: Fall, Left hip pain, Simple bone cyst Disposition: HOME SELF-CARE Instructions (If sedation given, give patient instructions): Fall Prevention for Older Adults (ED), Hip Pain (ED) Additional Instructions: Return to the emergency department with any new, worsening, or concerning sympt oms. Continue to take Tylenol as needed for pain relief. Take the [place] sparingly when your pain is the most severe. An appointment was made for you with orthopedics for this Saturday, 04/12, at 9:[address] Mendez at [facility]. Prescriptions: HYDROcodone/APAP 5-325MG [[place] 5-325] 1 tab PO Q6HR PRN 3 Days #12 tab PRN Reason: Pain Is patient prescribed a controlled substance at d/c from ED?: Yes When asked, does pt state using other controlled substances?: No If prescribed controlled substance>3 days was MAPS reviewed?: Prescribed <3 Days Referrals: Jose Mendez DO [Doctor of Osteopathic Medicine] - 04/12/23 9:15 am (New patient appointment, please bring ID and insurance cards to appointment. There will be new patinet paperwork to complete also. ) Quynh Clarke MD [Primary Care Provider] - 1-2 days
--- NOTE | 2023-04-10 11:41 | XR ---
EXAMINATION TYPE: XR Hip Complete LT DATE OF EXAM: 04/10/2023 CLINICAL HISTORY: pain TECHNIQUE: AP and frogleg views of the left hip are obtained. COMPARISON: None. FINDINGS: There is no acute fracture/dislocation evident. The joint space appears within normal li mits. The overlying soft tissue appears unremarkable. IMPRESSION: 1. There is no acute fracture or dislocation.ICD 10 NO FRACTURE, INITIAL EVALUATION
[2023-04-10] MEDS ORDERED: HYDROcodone/APAP 5-325MG 1 EACH TAB PO STA (11:49)
--- NOTE | 2023-04-10 12:45 | CT ---
EXAMINATION TYPE: CT hip LT wo con DATE OF EXAM: 04/10/2023 COMPARISON: Plain films from the same day HISTORY: Fall, hip pain CT DLP: 291.5 mGycm Automated exposure control for dose reduction was used. Unenhanced CT of the left hip was performed i n the axial, coronal and sagittal planes. FINDINGS: There is no evidence for displaced or impacted fracture. Simple cyst is seen of the left femoral neck laterally measuring 8 mm. There is mild degenerative joint space narrowing. Soft tissues are intact and free of fluid collection or bony destructive process. Mild vascular calcifications are seen. No e vidence for pelvic mass. IMPRESSION: NO ACUTE FRACTURE OR DISLOCATION OF THE LEFT HIP.
[2023-04-10] MEDS ORDERED: ACET/COD 300 MG/30 MG STARTER PACK 6 TAB BTL PO STA (13:02)
[2023-04-10 13:39] LABS: Appearance,Urine Clear (Clear); Bilirubin,Urine Negative (Negative); Color,Urine Light Yellow; Glucose,Urine (UA) Negative (Negative); Ketones,Urine Negative (Negative); Protein,Urine 1+ (Negative)
[2023-04-10 13:40] LABS: Blood,Urine Small (Negative); Leukocyte Esterase,Urine Negative (Negative); Nitrite,Urine Negative (Negative); Urobilinogen,Urine <2.0 mg/dL (<2.0)
[2023-04-10 13:46] LABS: RBC,Urine 10 /hpf (0-5); WBC,Urine 1 /hpf (0-5)
[2023-04-10 14:11] VITALS: BP 155/84; PULSE 76; RESP 16; TEMP 98.3
== END 2023-04-10 16:07 | disposition home or self-care (01) ==
LOC: EC 10:23 → SUPCPDRO 10:23 → EC 16:07
DX: M85.60 Other cyst of bone, unspecified site (principal); I10 Essential (primary) hypertension; F41.9 Anxiety disorder, unspecified; F17.200 Nicotine dependence, unspecified, uncomplicated; F12.90 Cannabis use, unspecified, uncomplicated; Z79.899 Other long term (current) drug therapy; W06.XXXA Fall from bed, initial encounter
CPT/HCPCS: 73502; 81001; 99284